=== PATIENT | male | born 1965 | race Caucasian/White ===

== ENCOUNTER 2018-07-27 10:50 | Emergency (ER) | payer MEDICAID, SELFPAY ==
[2018-07-27 10:55] VITALS: BP 139/84; PULSE 99; RESP 16; TEMP 36.7; O2SAT 98
--- NOTE | 2018-07-27 11:06 | DI.RAD_ITS ---
SYMPTOMS/DIAGNOSIS: KNEE PAIN LEFT KNEE: The joint spaces are well maintained. No fracture or joint effusion is seen. There are no significant degenerative changes. IMPRESSION: Negative left knee.
--- NOTE | 2018-07-27 11:08 | W.ED.GENAD ---
Discharge Plan Disposition Patient Disposition: HOME Condition: Stable Discharge Details Chief Complaint: Orthopedic Clinical Impression: Acute pain of left knee Primary Care Provider: Umm Silva ED Provider: Frankie Birmingham Home Meds and New Rx's Prescriptions: New diclofenac sodium 50 mg tablet,delayed release (DR/EC) 50 mg PO TID PRN (Reason: pain) Qty: 15 RF: 0 Discontinued naproxen sodium [Aleve] 220 MG capsule 2 tab PO PRN PRNRF: 0 ibuprofen [Ibuprofen IB] 200 mg Tablet 800 mg PO TID RF: 0 Discharge Instructions Instructions: Knee Pain (ED) Additional Instructions: Due to the injection he received in the emergency department do not take the prescribed pain reliever until 8 PM this evening. Otherwise feel free to return to the emergency department for new or worsening symptoms. Please use the provided knee brace at all times for the next 2 weeks. Use crutches for the next 3 days and then slowly advance activity as tolerated. Call the orthopedic office for arrangement of follow-up appointment. Stand Alone Forms: Work Release Referrals: Adal Georges MD [ [facility] STAFF PHYSICIAN] - 2 weeks (Please call the office for arrangement of follow-up appointment) Discharge Data Discharge Date/Time-TO BE ENTERED AT DEPARTURE: 07/27/18 12:27 Medical Decision Making Patient presenting to the emergency department for chief complaint of left knee pain. Patient states that this is been going on for at least the last 3 years with worsening of symptoms over the last 3 months. Patient states that on a regular basis he is knee gives out or locks and he does occasionally fall when this occurs. Patient states that he had a patella fracture 30+ years ago on the same knee and has had intermittent pain but this is become more persistent with his symptoms of pain and giving out. Physical exam is difficult because with any manipulation or palpation of the knee or surrounding structures patient states excruciating pain and discomfort. Given severe pain and discomfort and inability to fully weight-bear radiological imaging was ordered of the left knee. Patient given IM injection of ketorolac pending results. Review of radiological imaging and my interpretation is no acute findings noted. Patient was reassessed and did state some improvement in discomfort. Patient was placed upon diclofenac 3 times daily and given 5 days worth of prescription. There is significant concern due to joint line tenderness and knee giving out for meniscal type tear. With this patient was instructed to call orthopedic office for arrangement of follow-up appointment and he stated he prefer Dr. Georges as he had been recommended to follow-up with him. After discussion of diagnosis and plan of care patient is no further needs, questions, or concerns and states clear understanding to return to the emergency department for any worsening symptoms. Patient placed up on crutches for the next 3 days and placed in a hinged knee brace which she was encouraged to wear for the next 2 weeks at all times and to slowly advance activity as tolerated. HPI General Mode of arrival: ambulatory. Date/Time Provider Initiated Documentation: 07/27/18 10:57. Limitations to Documentation: no limitations. Information obtained by: patient and family. History of Present Illness 52 year old M presents to the emergency department with the chief complaint of Left knee pain, described as severe, with intensity rated at 9. Quality is described as sharp, and is localized to the left and lower extremity. Patient started experiencing this year(s) (3 years with worsening over the last 3-4-month) and it has been constant. No relieving factors improve symptom(s), Movement worsens symptoms . Patient notes no other symptoms.. Patient did receive the following treatments prior to arrival, NSAID (800mg yesterday) Related Data Home Medications Medication Instructions Recorded Confirmed diclofenac sodium 50 mg PO TID PRN #15 tab 07/27/18 Previous Rx's Medication Instructions Recorded diclofenac sodium 50 mg PO TID PRN #15 tab 07/27/18 Allergies Allergy/AdvReac Type Severity Reaction Status Date / Time No Known Allergies Allergy Unverified 07/27/18 10:59 General Stated Complaint: Orthopedic ELBA: 4 Review of Systems Constitutional Denies chills and Denies fever(s) Cardiovascular Denies chest pain and Denies dyspnea Respiratory Denies dyspnea Musculoskeletal Reports as per HPI, Reports arthralgias, Reports limited range of motion, Denies numbness and Denies stiffness Neurologic Denies numbness [facility] Medical History Kidney stone (Chronic) Left patella fracture (Chronic) Social History Smoking/Tobacco Use Status: Never Exam Const General: cooperative Orientation: alert, awake and oriented x3 Resp Effort & Inspection: normal respiratory effort and able to speak in complete sentences Cardio Rate: regular rate Rhythm: regular rhythm Neuro General: alert, awake, oriented x3 and moves all extremities Extrem Right lower extremity: normal to inspection Left lower extremity: normal capillary refill and knee Details: normal to inspection, tenderness Location: of the patella, of the medial joint line and of the lateral joint line, abnormal ROM Details: pain with active ROM Details: with extension and with flexion; able to extend lower leg actively and knee ligament exam abnormal Details: anterior drawer test Details: pain noted, posterior drawer test Details: pain noted, valgus stress test Details: pain noted, varus stress test Details: pain noted and pain with axial loading; no deformity and no unusual warmth Course Vital Signs Temperature 36.7 C 07/27/18 10:55 Pulse 99 H 07/27/18 10:55 Respiratory Rate 16 07/27/18 10:55 Blood Pressure 139/84 07/27/18 10:55 Pulse Oximetry 98 07/27/18 10:55 Temperature 36.7 C 07/27/18 10:55 Temperature Source Skin 07/27/18 10:55 Pulse 99 H 07/27/18 10:55 Respiratory Rate 16 07/27/18 10:55 Respiratory Effort Non-Labored 07/27/18 10:55 Blood Pressure 139/84 07/27/18 10:55 Pulse Oximetry 98 07/27/18 10:55 Oxygen Delivery Method Room Air 07/27/18 10:55 Oxygen Flow Rate 0 07/27/18 10:55 Pain Level 9 07/27/18 11:04
[2018-07-27] MEDS: Ketorolac 60 MG/2 ML VIAL IM (11:12)
== END 2018-07-27 12:27 | disposition home or self-care (01) ==
LOC: ER 12:25
PROVIDERS: Emergency Provider Nurse Practitioner Family; PCP Nurse Practitioner Gerontology
DX: M25.562 Pain in left knee (principal)
CPT/HCPCS: 29505; 73562; 96372; 99284; E0114; J1885; L1810

== ENCOUNTER 2018-08-22 00:31 | Outpatient (CLI) | payer MEDICAID, SELFPAY ==
--- NOTE | 2018-08-22 10:35 | DI.MRI_ITS ---
SYMPTOM/DIAGNOSIS: LT KNEE PAIN, ? MEDIAL MENISCAL TEAR, M23.92, INTERNAL DERANGEMENT LEFT KNEE MRI: Routine noncontrast examination was performed. The anterior cruciate, posterior cruciate and lateral collateral ligament are intact as are the extensor mechanism, medial and lateral retinaculum and popliteus tendon. There is T 2 hyperintense signal around the medial collateral ligament suggesting a grade I sprain. No shiv tear is identified. The lateral meniscus is intact. There is abnormal signal seen in the region of the body and posterior horn of the medial meniscus suspicious for a tear. The articular cartilage is well maintained. No findings to suggest an occult fracture or avascular necrosis is seen. There are areas of mild marrow edema seen in the tibial plateau, particularly laterally. There is a small amount of fluid in the joint space. No popliteal cyst is seen. The muscles show normal signal and size. No significant muscular fatty atrophy is appreciated. IMPRESSION: 1. Abnormal signal seen in the body and posterior horn of the medial meniscus suspicious for a tear. 2. Mild hyperintense signal surrounding the MCL suspicious for a grade I sprain.
== END 2018-08-22 00:51 ==
PROVIDERS: PCP Family Medicine; Visit Provider Student in an Organized Health Care Education/Training Program
DX: M25.562 Pain in left knee (principal); S83.242A Other tear of medial meniscus, current injury, left knee, initial encounter; S83.412A Sprain of medial collateral ligament of left knee, initial encounter
CPT/HCPCS: 73721

== ENCOUNTER 2019-01-29 08:46 | Inpatient (IN) | payer MEDICAID, SELFPAY ==
[2019-01-29] VITALS (26 sets, daily range): BP systolic 125–197; BP diastolic 74–122; PULSE 69–102; RESP 16–21; TEMP 36.5–37.7; O2SAT 93–97
[2019-01-29] MEDS: Ketorolac 15 MG/ML VIAL IVP (09:35)
[2019-01-29 09:40] LABS: Bilirubin Negative (Negative); Blood Negative (Negative); Clarity Clear; Glucose 500 mg/dL (Negative); Ketones Negative (Negative); Leukocyte Esterase Negative (Negative); Nitrite Negative (Negative); Specific Gravity 1.025 (1.005-1.025)
[2019-01-29 09:47] LABS: Abs Immature Grans 0.05 k/cumm (0.0-0.09); Absolute Eosinophil Count 0.02 k/cumm (0.0-0.7); Absolute Neutrophil Count 12.88 k/cumm (1.2-6.7); Basophils % 0.1; Eosinophils % 0.1; HCT 45.1 % (40.0-50.0); HGB 15.3 g/dL (13.5-17.5); Immature Grans % 0.3; Lymphocytes % 8.4; Mean Corp. HGB Concentration 33.9 g/dL (32.0-36.0); Mean Corpuscular Hemoglobin 30.7 pg (27.0-33.0); Mean Corpuscular Volume 90.6 fL (80-95); Mean Platelet Volume 10.5 fL (8.0-11.0); Monocytes % 11.3; Neutrophils % 79.8; Platelet Count 281 x1000/uL (130-400); RBC 4.98 m/cumm (4.50-6.00); RBC Distribution Width 12.8 % (11.8-14.1); White Blood Cell Count 16.14 k/cumm (4.4-10.8)
[2019-01-29 09:51] LABS: Bacteria Rare HPF (Negative); C & S Indicated? No; Casts Negative LPF (Negative); Crystals Negative HPF (Negative); Epithelial Cells Rare HPF (Negative); Mucus Moderate (Negative); RBC Negative (0-2); WBC 0-2 HPF (0-5)
[2019-01-29 09:51] LABS: Absolute Basophil Count 0.02 k/cumm (0.0-0.2); Absolute Lymphocyte Count 1.36 k/cumm (1.2-3.4); Absolute Monocyte Count 1.82 k/cumm (0.11-0.7)
--- NOTE | 2019-01-29 09:57 | DI.CT_ITS ---
SYMPTOM/DIAGNOSIS: SHARP PAIN FROM ABDOMEN TO BACK, R/O DISSECTION. CHEST, ABDOMEN AND PELVIS CT: 01/29/19 CT examination of the chest, abdomen and pelvis was performed with a bolus infusion of 100 cc Omnipaque 350. There are multiple pulmonary nodules. The largest is a lobulated 10 mm in diameter right middle lobe nodule. An additional right middle lobe nodule is noted measuring about 5 mm in diameter and there is a 7 mm in diameter nodule in the left lower lobe. These are all noncalcified and well circumscribed. No mediastinal or hilar adenopathy. No pulmonary consolidation. No pleural effusion or pneumothorax. No evidence of pulmonary embolic disease No thoracic aortic dissection or aneurysm. Tracheobronchial tree appears intact. Apart from degenerative changes of the lumbar spine, no significant bony abnormality seen in the chest, abdomen or pelvis. Note is made of hepatic steatosis. Gallbladder is dilated and probably thick-walled and there appears to be nunu- cholecystic fat edema. Question mild enhancement of the wall of the duodenum which may represent reactive process. The pancreas appears intact. However, there is a question high density material associated with the distal common bile duct. No intrahepatic biliary ductal dilatation seen. The spleen is unremarkable. There are tiny nonobstructing left renal calculi and small bilateral presumed renal cysts. Adrenals are unremarkable. Abdominal aorta and major branches appear normal. Small fat containing bilateral inguinal hernias noted. No abdominal or pelvic adenopathy. Appendix appears normal. No evidence of diverticulitis or bowel obstruction. CONCLUSION: 1. Multiple noncalcified intrapulmonary nodules, the largest a 10 mm in diameter right middle lobe nodule. Biopsy or close follow up should be considered. 2. Markedly abnormal appearance of the gallbladder with gallbladder wall thickening and pericholecystic fluid, common duct stone not excluded. Correlation with ultrasound recommended. 3. Nonobstructing left renal calculi. 4. No evidence of aortic abnormality or pulmonary embolic disease.
[2019-01-29 10:09] LABS: ALT 32 U/L (12-78); AST 13 U/L (15-37); Albumin 3.6 g/dL (3.4-5.0); Alkaline Phosphatase 110 U/L (46-116); Anion Gap 8.5 mmol/L (3-11); BUN 12 mg/dL (7-18); Bilirubin, Total 1.1 mg/dL (0.2-1.0); CO2 27.5 mmol/L (21.0-32.0); CREATININE 0.97 mg/dL (0.70-1.30); Chloride 99 mmol/L (98-107); Glucose 146 mg/dL (70-100); Lipase 683 U/L (73-393); Potassium 3.7 mmol/L (3.5-5.1); Sodium 135 mmol/L (136-145); Total Protein 7.7 g/dL (6.4-8.2)
[2019-01-29 10:30] LABS: Calcium 10.5 mg/dL (8.5-10.1)
[2019-01-29] MEDS: Omnipaque 350 MG/ML 100 ML BTL IJ (11:12)
--- NOTE | 2019-01-29 11:25 | DI.US_ITS ---
SYMPTOM/DIAGNOSIS: RUQ, EVAL GB AND DUCTS ABDOMINAL ULTRASOUND: 01/29/19 The visualized liver parenchyma is normal in appearance. Note is made of cholelithiasis. The gallbladder is distended and has a thick wall. CT examination showed pericholecystic fat edema. The common duct is poorly seen but appears grossly of normal diameter. Question of high density material seen in the region of the common duct on CT, cannot be confirmed. The pancreas is poorly visualized. CONCLUSION: Cholelithiasis and findings suggesting acute cholecystitis. Common duct obstruction not confirmed. Common duct stone not confirmed. Additional evaluation with MRCP should be considered.
[2019-01-29] MEDS: HYDROmorphone 2 MG/ML VIAL 1 MG IVP (11:33)
--- NOTE | 2019-01-29 12:29 | ED.GENADUL_ITS ---
Discharge Plan Disposition Patient Disposition: [facility] INPATIENT Condition: Stable Discharge Details Chief Complaint: Abd Prob Clinical Impression: Acute cholecystitis, Incidental pulmonary nodule, Pancreatitis Admit Date/Time: 01/29/19 12:26 Admit Provider: Tracie Burch Attending Provider: Tracie Burch Primary Care Provider: Vero Flores ED Provider: Jordan Kwok Discharge Data Discharge Date/Time-TO BE ENTERED AT DEPARTURE: 01/29/19 14:15 Medical Decision Making This is a pleasant 53-year-old male who presents for evaluation of abdominal pain that started at midnight last night. He has a history of MEM type I, kidney stones, he felt that his symptoms were suggestive of his kidney stones. Physical exam demonstrates reproducible abdominal tenderness. Laboratory workup demonstrates a white count of 16, normal electrolytes, normal renal function. Lipase is notably elevated at 683. Urinalysis shows no evidence of urinary tract infection or hematuria. The patient's CT scan was ordered to rule out dissection due to the stabbing pain that radiates directly to his back. CTA of the chest abdomen pelvis was negative for dissection, negative for appendicitis, however it was positive for notably dilated gallbladder, with signs and symptoms concerning for cholecystitis. No bile duct or common bile duct dilatation however there was concern for potential stone. Subsequent ultrasound was ordered and Dr. Park feels that complete visualization of the docs was difficult secondary to bowel gas, and he does not see any significant ductal dilatation though, but he is unable to rule out a stone. Contact contact the surgeon Dr. Mccarthy, she agrees with the current plan recommend Rocephin and Flagyl for antibiotics, he she will admit the patient for further surgical evaluation and management. I have extensively reviewed the treatment plan with the patient. I have addressed all patient concerns at this time. I have also discussed the plan with the admitting physician and they agree with the current assessment and plan and have agreed to assume responsibility for the patient. All parties demonstrate verbal understanding and agreement with our assessment and plan at this time. Also of note the patient CT scan of the chest does demonstrate evidence of notable pulmonary nodules, which do appear to be new. This was discussed with the surgeon and the patient. HPI General Date/Time Provider Initiated Documentation: 01/29/19 08:53 . HPI Narrative: This is a pleasant 53-year-old male with a past medical history of men's type I, previous kidney stones, who takes no medications whatsoever, who presents today for evaluation of periumbilical pain that started at midnight. He describes it as sharp in nature, and goes directly to his back. He has associated nausea but no vomiting. He denies any diarrhea. He states that this feels similar to his previous kidney stones. He denies any dysuria, hematuria or increased urinary frequency. He denies any other complaints at this time. He denies any previous abdominal surgeries. He denies any any IV or illicit drug use. He denies any pertinent family history. Related Data Home Medications Medication Instructions Recorded Confirmed Unknown [No Known Home Meds] 01/29/19 01/29/19 Allergies Allergy/AdvReac Type Severity Reaction Status Date / Time cortisone Allergy Verified 01/29/19 10:30 General Stated Complaint: Abd Prob ELBA: 3 Review of Systems Review of Systems All systems reviewed & are unremarkable except as noted in HPI and below PFSH Medical History Pulmonary nodule seen on imaging study (Acute) Hyperparathyroidism type 1 (Acute) Acute cholecystitis due to biliary calculus (Acute) Acute gallstone pancreatitis (Acute) MEN I (multiple endocrine neoplasia) (Acute) Kidney stones (Chronic) Internal derangement of left knee (Acute) Kidney stone (Chronic) Left patella fracture (Chronic) Social History Smoking/Tobacco Use Status: Never Drug use: Current Sobriety Substance use type: marijuana Do you feel safe at home: Yes Do you feel safe in your relationship?: Yes Exam Narrative Exam Narrative: 1.Const: Well-nourished, Well-developed, appearing stated age 2.Eyes: PERRL, no conjunctival injection, and symmetrical lids. 3.ENT: Atraumatic external nose and ears. Moist MM. Neck: Symmetric, trachea midline, No thyromegaly. 4.CVS: +S1/S2, No murmurs or gallops. Peripheral pulses 2+ and equal in all extremities. Brisk capillary refill in all extremities. 5.RESP: Unlabored respiratory effort. Clear to auscultation bilaterally. No wheezes rales or rhonchi 6.GI: Notable tenderness throughout especially in the periumbilical region. Mild right upper quadrant and right lower quadrant tenderness. No flank or CVA tenderness. Genital exam demonstrates bilaterally descended testicles that are nontender, negative cremasteric reflex. No penile tenderness peer 7.MSK: Normocephalic/Atraumatic, Extremities w/o deformity or ttp No cyanosis or clubbing, Normal movement of all extremities 8.Skin: Warm, Dry. No rashes or lesions. 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 Sensation grossly intact, no focal neurologic deficits. 10.Psych: (AAO) x3. Appropriate mood and affect Course Vital Signs Temperature 37.0 C 01/29/19 08:52 Pulse 98 H 01/29/19 08:52 Respiratory Rate 18 01/29/19 08:52 Pulse Oximetry 97 01/29/19 08:52 Temperature 37.0 C 01/29/19 08:52 Temperature Source Skin 01/29/19 08:52 Pulse 80 01/29/19 10:46 Respiratory Rate 18 01/29/19 08:52 Blood Pressure 159/79 H 01/29/19 10:46 Blood Pressure Mean 100 01/29/19 10:46 Pulse Oximetry 97 01/29/19 10:46 Oxygen Delivery Method Room Air 01/29/19 08:52 Oxygen Flow Rate 0 01/29/19 08:52 Pain Level 10 01/29/19 11:33 Comment pt woke at midnight with 01/29/19 08:52 Lab/Test Results Lab/Test Results: Laboratory Tests Range/Units 01/29/19 01/29/19 01/29/19 09:15 09:30 09:30 WBC (4.4-10.8) k/cumm 16.14 H RBC (4.50-6.00) m/cumm 4.98 Hgb (13.5-17.5) g/dL 15.3 Hct (40.0-50.0) % 45.1 MCV (80-95) fL 90.6 MCH (27.0-33.0) pg 30.7 MCHC (32.0-36.0) g/dL 33.9 RDW (11.8-14.1) % 12.8 Plt Count (130-400) x1000/uL 281 MPV (8.0-11.0) fL 10.5 Immature Gran % 0.3 Neutrophils % 79.8 Lymphocytes % 8.4 Monocytes % 11.3 Eosinophils % 0.1 Basophils % 0.1 Absolute Neutrophils (1.2-6.7) k/cumm 12.88 H Absolute Lymphocytes (1.2-3.4) k/cumm 1.36 Absolute Monocytes (0.11-0.7) k/cumm 1.82 H Absolute Eosinophils (0.0-0.7) k/cumm 0.02 Absolute Basophils (0.0-0.2) k/cumm 0.02 Sodium (136-145) mmol/L 135 L Potassium (3.5-5.1) mmol/L 3.7 Chloride (98-107) mmol/L 99 Carbon Dioxide (21.0-32.0) mmol/L 27.5 Anion Gap (3-11) mmol/L 8.5 BUN (7-18) mg/dL 12 Creatinine (0.70-1.30) mg/dL 0.97 Estimated GFR/1.73 m2 (mL/min/1.73m2) >= 60.00 Glucose (70-100) mg/dL 146 H Calcium (8.5-10.1) mg/dL 10.5 H Total Bilirubin (0.2-1.0) mg/dL 1.1 H AST (15-37) U/L 13 L ALT (12-78) U/L 32 Alkaline Phosphatase (46-116) U/L 110 Total Protein (6.4-8.2) g/dL 7.7 Albumin (3.4-5.0) g/dL 3.6 Lipase (73-393) U/L 683 H Urine Color (Yellow) Dark yellow Urine Clarity Clear Urine pH (5-8) 7.0 Ur Specific [place] (1.005-1.025) 1.025 Urine Protein (Negative) mg/dL 30 H Urine Ketones (Negative) mg/dL Negative Urine Blood (Negative) Negative Urine Nitrite (Negative) Negative Urine Bilirubin (Negative) Negative Urine Urobilinogen (Up TO 0.2) EU/dL 2.0 H Ur Leukocyte Esterase (Negative) Negative Urine RBC (0-2) Negative Urine WBC (0-5) HPF 0-2 Ur Epithelial Cells (Negative) HPF Rare Urine Crystals (Negative) HPF Negative Urine Bacteria (Negative) HPF Rare Urine Casts (Negative) LPF Negative Urine Mucus (Negative) Moderate Ur Culture Indicated? No Urine Glucose (Negative) mg/dL 500 H
--- NOTE | 2019-01-29 13:44 | SCONE_ITS ---
Date of service: 01/29/19 Time of Service: 13:44 Assessment and Plan (1) Acute gallstone pancreatitis: Current visit: Yes Status: Acute reviewed CT w/ rads. Can't see the CBD well- but rads did not think he h as a stone. can't see at all on US. pt cannot tolerate being in an MRI/can't do MRCP. dont think pt requires ERCP. will see how enzymes respond. will admit for IV abx/pain management/supportive care. May needs to allow pancrease to cool down and come back and have interval cholecystectomy. (2) Acute cholecystitis due to biliary calculus: Current visit: Yes Status: Acute as above (3) MEN I (multiple endocrine neoplasia): Current visit: No Status: Acute dg by genetic testing no recent eval (4) Hyperparathyroidism type 1: Current visit: Yes Status: Acute 10 yrs ago had sx at [place] no recent eval (5) Pulmonary nodule seen on imaging study: Current visit: Yes Status: Acute 10mm in size. would be amendable to CT guided bx. should be done as outpt. pt has mult small nodules and prob due to MEN and not met dx. but still needs nodule bx done History of Present Illness Chief Complaint: H & P Narrative: pt has been having periumbilical pain since tuesday. radiates into b ack. no N/V. He is hungry and would liek something to drink. He has a hx of kidney stones and thought he was having a kidney stone and came into ED. no vomiting. + BM. no diarrhea. no blood in stools. He did not know he had kidney stones. He does have a Hx MEN- dg by genetic testing at [place]. Had parathyroids out in x2 sx at [place]. No hx of pancrease or thyroid problems that he is aware of. no recent CT of head. calcium was 12-16 prior to PTH Sx. nl nowadays. Is not aware that he has any pulmonary nodules. no recent CT/CXR. doesn't smoke or drink ETOH. Calcium is 10.5, Pt has never had pancreatitis from from hyperpara.. not on diurectics. no trauma. not on any meds. Consults Consult date: 01/29/19 Requesting physician: Jordan Kwok Review of Systems Review of Systems All systems reviewed & are unremarkable except as noted in HPI and below Constitutional Reports as per HPI, Reports system reviewed and no additional complaints, except as docu, Denies anorexia, Denies chills, Denies difficulty sleeping, Denies fatigue, Denies headache(s), Denies lethargy, Denies malaise, Denies poor appetite, Denies weakness, Denies weight gain and Denies weight loss Eyes Reports as per HPI, Reports system reviewed and no additional complaints, except as docu and Denies change in vision ENT Reports system reviewed and no additional complaints, except as docu, Reports as per HPI, Denies change in voice, Denies dental pain, Denies dysphagia, Denies dizziness, Denies facial pain, Denies headache(s) and Denies odynophagia Cardiovascular Reports as per HPI, Reports system reviewed and no additional complaints, except as docu, Denies chest pain, Denies chest pain with activity, Denies syncope, Denies leg edema and Denies dyspnea Respiratory Reports as per HPI, Reports system reviewed and no additional complaints, except as docu, Denies chest congestion, Denies cough, Denies pain with cough and Denies dyspnea Gastrointestinal Reports as per HPI, Reports system reviewed and no additional complaints, except as docu, Reports abdominal pain, Reports bloating, Denies change in bowel habits, Denies change in stool character, Denies constipation, Reports cramping, Denies dysphagia, Reports early satiety, Denies heartburn, Reports diarrhea (chronic ), Reports nausea, Denies odynophagia and Reports vomiting Comments: s/p RYG Genitourinary Reports system reviewed and no additional complaints, except as docu Comments: hx of kidne stones Musculoskeletal Reports system reviewed and no additional complaints, except as docu, Reports as per HPI, Denies abnormal gait, Denies arthralgias and Denies muscle weakness Integumentary/Breasts Reports system reviewed and no additional complaints, except as docu, Reports as per HPI, Denies changing lesions, Denies new lesions and Denies jaundice Neurologic Reports system reviewed and no additional complaints, except as docu, Reports as per HPI, Denies abnormal speech, Denies abnormal gait, Denies dizziness, Denies syncope, Denies headache(s), Denies memory loss and Denies weakness Psychiatric Reports system reviewed and no additional complaints, except as docu, Reports as per HPI, Denies change in appetite and Denies memory loss Endocrine Denies fatigue, Denies polydipsia and Denies polyuria Comments: hx of MEN- hyerparathyroid Hematologic/Lymphatic Reports system reviewed and no additional complaints, except as docu, Denies easy bleeding and Denies easy bruising Allergic/Immunologic Denies system reviewed and no additional complaints, except as docu, Reports as per HPI and Denies urticaria PFSH Medical History Pulmonary nodule seen on imaging study (Acute) Hyperparathyroidism type 1 (Acute) Acute cholecystitis due to biliary calculus (Acute) Acute gallstone pancreatitis (Acute) MEN I (multiple endocrine neoplasia) (Acute) Kidney stones (Chronic) Internal derangement of left knee (Acute) Kidney stone (Chronic) Left patella fracture (Chronic) Social History Smoking/Tobacco Use Status: Never Drug use: Current Sobriety Substance use type: marijuana Do you feel safe at home: Yes Do you feel safe in your relationship?: Yes Exam Const General: cooperative, healthy appearing, comfortable, no acute distress, well developed and well groomed Nutritional Appearance: average body habitus and well nourished Orientation: alert, awake and oriented x3 HENMT Head: normal to inspection, normocephalic and atraumatic Ears: hearing grossly normal bilaterally and external ears normal General nose exam: external nose normal Face and sinus: normal facial exam and sinuses nontender Mouth: oral mucosae normal, lip normal, tongue normal and moist mucous membranes Teeth and gingiva: dentition normal Eyes General: appearance normal, both eyes and all related structures Conjunctivae: conjunctivae normal Sclera: sclerae normal Pupils: PERRL Neck Neck: normal visual inspection and full ROM Chest Chest: normal inspection of the chest Resp Effort & Inspection: normal respiratory effort, able to speak in complete sentences, no cough, no nasal flaring, not tachypneic and no use of accessory muscles Auscultation: clear to auscultation bilaterally, no rales, no rhonchi and no wheezes Cardio Jugular venous pressure: no JVD Rate: regular rate Rhythm: regular rhythm GI Inspection: normal to inspection, no edema and non-distended Palpation: soft, no masses, nontender and No ascites Auscultation: normal bowel sounds Other: pain in epigastric area. rediates to left flank. also RUQ pain. +BS no distention or peritonitis. Skin General skin exam: no rashes or lesions noted Trauma: no lacerations or abrasions Neuro General: alert, oriented x3, oriented, gait normal, moves all extremities, no focal motor deficits and CN's II-XI intact bilaterally Cognition: normal cognition Speech: speech normal Gait: normal gait Motor: muscle tone normal throughout Extrem General: normal to inspection, full ROM and no clubbing, cyanosis or edema Psych Appearance: grossly normal and well kempt Mental Status: mental status grossly normal Speech and Movement: speech and movement normal Affect: normal affect Results Last Vital Signs Temp 37.0 C 01/29/19 08:52 Pulse 80 01/29/19 10:46 Resp 18 01/29/19 08:52 BP 159/79 H 01/29/19 10:46 Pulse Ox 97 01/29/19 10:46 Labs : 01/29/19 09:30 01/29/19 09:30 Laboratory Results - last 24 hr 01/29/19 01/29/19 01/29/19 09:15 09:30 09:30 WBC 16.14 H RBC 4.98 Hgb 15.3 Hct 45.1 MCV 90.6 MCH 30.7 MCHC 33.9 RDW 12.8 Plt Count 281 MPV 10.5 Immature Gran % 0.3 Neutrophils % 79.8 Lymphocytes % 8.4 Monocytes % 11.3 Eosinophils % 0.1 Basophils % 0.1 Absolute Neutrophils 12.88 H Absolute Lymphocytes 1.36 Absolute Monocytes 1.82 H Absolute Eosinophils 0.02 Absolute Basophils 0.02 Sodium 135 L Potassium 3.7 Chloride 99 Carbon Dioxide 27.5 Anion Gap 8.5 BUN 12 Creatinine 0.97 Estimated GFR/1.73 m2 >= 60.00 Glucose 146 H Calcium 10.5 H Total Bilirubin 1.1 H AST 13 L ALT 32 Alkaline Phosphatase 110 Total Protein 7.7 Albumin 3.6 Lipase 683 H Urine Color Dark yellow Urine Clarity Clear Urine pH 7.0 Ur Specific [place] 1.025 Urine Protein 30 H Urine Ketones Negative Urine Blood Negative Urine Nitrite Negative Urine Bilirubin Negative Urine Urobilinogen 2.0 H Ur Leukocyte Esterase Negative Urine RBC Negative Urine WBC 0-2 Ur Epithelial Cells Rare Urine Crystals Negative Urine Bacteria Rare Urine Casts Negative Urine Mucus Moderate Ur Culture Indicated? No Urine Glucose 500 H
[2019-01-29] MEDS: cefTRIAXone 2 GM/50 ML BAG IVPB (14:08)
[2019-01-29] MEDS: Lactated Ringers 1,000 ML 150 ML IV ×2 (14:28→22:05)
[2019-01-29] MEDS: Normal Saline Flush 10 ML SYR IVP ×2 (15:01→20:29)
[2019-01-29] MEDS: Enoxaparin 40 MG/0.4 ML SYR SC (16:26)
[2019-01-29] MEDS: metroNIDAZOLE 500 MG/100 ML BAG 100 MG IVPB ×2 (17:07→23:45)
[2019-01-30] VITALS (33 sets, daily range): BP systolic 137–176; BP diastolic 72–94; PULSE 80–108; RESP 12–26; TEMP 36.6–38.2; O2SAT 91–97
--- NOTE | 2019-01-30 00:32 | NUR.NOTE ---
Nursing Note: Pt was medicated for back pain rated 9. and with good effect, voided a total of 250 cc up to this time. Family member at bedside. Call lights at reach.
[2019-01-30] MEDS: Lactated Ringers 1,000 ML 150 ML IV (05:28)
[2019-01-30] MEDS: metroNIDAZOLE 500 MG/100 ML BAG 100 MG IVPB ×3 (06:04→23:43)
--- NOTE | 2019-01-30 06:57 | W.PM.PROGNOT ---
Documented by User: JOSELIN Antunez 01/30/19 07:04 Date of Service Date of service: 01/30/19 Time of Service: 06:58 Assessment and Plan (1) Acute gallstone pancreatitis: Current visit: Yes Status: Acute DIET- Sips of water PAIN- Dilaudid and Toradol ordered. ATB- Ceftriaxone and Metronidazole AM Labs pending No BM overnight. Urinating without difficulty. Encouraged activity out of bed as tolerated. (2) Acute cholecystitis due to biliary calculus: Current visit: Yes Status: Acute (3) MEN I (multiple endocrine neoplasia): Current visit: No Status: Acute (4) Hyperparathyroidism type 1: Current visit: Yes Status: Acute (5) Pulmonary nodule seen on imaging study: Current visit: Yes Status: Acute Subjective Interval history since last seen: Mr. Peter reports that his ABD pain continues, despite pain medications. He reports his pain is nunu-umbilical and radiates to his back. Denies nausea or vomiting. (+) Passing flatus. Tolerating water. Exam Const General: cooperative and acute distress mild Orientation: alert and oriented x3 Resp Effort & Inspection: normal respiratory effort, normal respiratory pattern and no audible wheezes GI Inspection: normal to inspection and non-distended Palpation: no guarding, hernia ventral and tender in the RUQ and periumbilically Auscultation: normal bowel sounds Objective Objective Clinical Data: Abnormal lab results 01/29/19 01/29/19 01/29/19 Range/Units 09:15 09:30 09:30 WBC 16.14 H (4.4-10.8) k/cumm Absolute Neutrophils 12.88 H (1.2-6.7) k/cumm Absolute Monocytes 1.82 H (0.11-0.7) k/cumm Sodium 135 L (136-145) mmol/L Glucose 146 H (70-100) mg/dL Calcium 10.5 H (8.5-10.1) mg/dL Total Bilirubin 1.1 H (0.2-1.0) mg/dL AST 13 L (15-37) U/L Lipase 683 H (73-393) U/L Urine Protein 30 H (Negative) mg/dL Urine Urobilinogen 2.0 H (Up TO 0.2) EU/dL Urine Glucose 500 H (Negative) mg/dL Vital Signs Temperature 37.7 C H 01/29/19 21:08 Temperature Source Tympanic 01/29/19 21:08 Pulse 92 H 01/29/19 21:08 Pulse Rhythm Regular 01/29/19 23:20 Respiratory Rate 20 01/29/19 21:08 Respiratory Effort Non-Labored 01/29/19 23:20 Respiratory Depth Normal 01/29/19 23:20 Blood Pressure 165/83 H 01/29/19 21:08 Blood Pressure Mean 100 01/29/19 10:46 Pulse Oximetry 96 01/29/19 21:08 Oxygen Delivery Method Room Air 01/29/19 21:08 Oxygen Flow Rate 0 01/29/19 21:08 Pain Level 9 01/29/19 20:29 Comment pt woke at midnight with 01/29/19 08:52 Intake & Output 01/29/19 01/29/19 01/30/19 06:59 18:59 06:59 Intake Total 150 / 2250 2100 / 2250 Output Total 250 / 250 Balance 150 / 2000 1850 / 2000 Weight 108.7 kg Intake: IV 150 / 2250 2100 / 2250 Output: Urine 250 / 250 Other: Urine Color Light Yesenia Urine Appearance Clear Voiding Methods Urinal Laboratory Results WBC 16.14 k/cumm (4.4-10.8) H 01/29/19 09:30 RBC 4.98 m/cumm (4.50-6.00) 01/29/19 09:30 Hgb 15.3 g/dL (13.5-17.5) 01/29/19 09:30 Hct 45.1 % (40.0-50.0) 01/29/19 09:30 MCV 90.6 fL (80-95) 01/29/19 09:30 MCH 30.7 pg (27.0-33.0) 01/29/19 09:30 MCHC 33.9 g/dL (32.0-36.0) 01/29/19 09:30 RDW 12.8 % (11.8-14.1) 01/29/19 09:30 Plt Count 281 x1000/uL (130-400) 01/29/19 09:30 MPV 10.5 fL (8.0-11.0) 01/29/19 09:30 Immature Gran % 0.3 01/29/19 09:30 Neutrophils % 79.8 01/29/19 09:30 Lymphocytes % 8.4 01/29/19 09:30 Monocytes % 11.3 01/29/19 09:30 Eosinophils % 0.1 01/29/19 09:30 Basophils % 0.1 01/29/19 09:30 Absolute Neutrophils 12.88 k/cumm (1.2-6.7) H 01/29/19 09:30 Absolute Lymphocytes 1.36 k/cumm (1.2-3.4) 01/29/19 09:30 Absolute Monocytes 1.82 k/cumm (0.11-0.7) H 01/29/19 09:30 Absolute Eosinophils 0.02 k/cumm (0.0-0.7) 01/29/19 09:30 Absolute Basophils 0.02 k/cumm (0.0-0.2) 01/29/19 09:30 Sodium 135 mmol/L (136-145) L 01/29/19 09:30 Potassium 3.7 mmol/L (3.5-5.1) 01/29/19 09:30 Chloride 99 mmol/L (98-107) 01/29/19 09:30 Carbon Dioxide 27.5 mmol/L (21.0-32.0) 01/29/19 09:30 Anion Gap 8.5 mmol/L (3-11) 01/29/19 09:30 BUN 12 mg/dL (7-18) 01/29/19 09:30 Creatinine 0.97 mg/dL (0.70-1.30) 01/29/19 09:30 Estimated GFR/1.73 m2 >= 60.00 (mL/min/1.73m2) 01/29/19 09:30 Glucose 146 mg/dL (70-100) H 01/29/19 09:30 Calcium 10.5 mg/dL (8.5-10.1) H 01/29/19 09:30 Total Bilirubin 1.1 mg/dL (0.2-1.0) H 01/29/19 09:30 AST 13 U/L (15-37) L 01/29/19 09:30 ALT 32 U/L (12-78) 01/29/19 09:30 Alkaline Phosphatase 110 U/L (46-116) 01/29/19 09:30 Total Protein 7.7 g/dL (6.4-8.2) 01/29/19 09:30 Albumin 3.6 g/dL (3.4-5.0) 01/29/19 09:30 Lipase 683 U/L (73-393) H 01/29/19 09:30 Urine Color Dark yellow (Yellow) 01/29/19 09:15 Urine Clarity Clear 01/29/19 09:15 Urine pH 7.0 (5-8) 01/29/19 09:15 Ur Specific [place] 1.025 (1.005-1.025) 01/29/19 09:15 Urine Protein 30 mg/dL (Negative) H 01/29/19 09:15 Urine Ketones Negative mg/dL (Negative) 01/29/19 09:15 Urine Blood Negative (Negative) 01/29/19 09:15 Urine Nitrite Negative (Negative) 01/29/19 09:15 Urine Bilirubin Negative (Negative) 01/29/19 09:15 Urine Urobilinogen 2.0 EU/dL (Up TO 0.2) H 01/29/19 09:15 Ur Leukocyte Esterase Negative (Negative) 01/29/19 09:15 Urine RBC Negative (0-2) 01/29/19 09:15 Urine WBC 0-2 HPF (0-5) 01/29/19 09:15 Ur Epithelial Cells Rare HPF (Negative) 01/29/19 09:15 Urine Crystals Negative HPF (Negative) 01/29/19 09:15 Urine Bacteria Rare HPF (Negative) 01/29/19 09:15 Urine Casts Negative LPF (Negative) 01/29/19 09:15 Urine Mucus Moderate (Negative) 01/29/19 09:15 Ur Culture Indicated? No 01/29/19 09:15 Urine Glucose 500 mg/dL (Negative) H 01/29/19 09:15 Documented by User: Trcaie Burch DO 01/30/19 09:42 Assessment and Plan (1) Acute cholecystitis due to biliary calculus: Current visit: Yes Status: Acute pt seen adn examined. agree w/ above. Panc labs and T bill are nl today. still having high pain in epigastric region and nausea despite sbx therapy US and CT reviewed. d/w pt surgery. pt agrees. high prob of going open Informed consent is obtained for the procedural (explained in simple layman's terms that the pt. and/or family could understand) explaining risks vs benefits and alternatives to the procedure and consequences if we do not do the procedure. Risks include but are not limited to: bleeding, infections, pneumonia, blood clots/DVT/PE, anesthesia (aspiration, damage to teeth/airway/AR/CVA//prolonged mechanical ventilation/PTX/IV infections), damage to bowel, bladder, blood vessels, ureters, bile ducts. Damage to solid organs requiring removal. Infertility. Leakage from anastomosis requiring colostomy/ Wound infections requiring further surgery. Loss of function of limb/ext. (motor or sensory). Scarring and disfigurement. Subsequent bowel obstructions from scar tissue. Possible open procedure if minimally invasive procedure is being attempted. pt will be in hosp at least another 24 hrs for IV abx high poss of going open secondary severity of Dx. d/w anethesia Ca nl today
[2019-01-30 08:23] LABS: Abs Immature Grans 0.02 k/cumm (0.0-0.09); Absolute Lymphocyte Count 1.25 k/cumm (1.2-3.4); Basophils % 0.2; HCT 43.5 % (40.0-50.0); HGB 14.3 g/dL (13.5-17.5); Immature Grans % 0.2; Lymphocytes % 9.9; Mean Corp. HGB Concentration 32.9 g/dL (32.0-36.0); Mean Corpuscular Volume 91.4 fL (80-95); Mean Platelet Volume 10.9 fL (8.0-11.0); Monocytes % 13.1; Neutrophils % 75.6; Platelet Count 258 x1000/uL (130-400); RBC 4.76 m/cumm (4.50-6.00); RBC Distribution Width 12.9 % (11.8-14.1); White Blood Cell Count 12.63 k/cumm (4.4-10.8)
[2019-01-30 08:32] LABS: Absolute Basophil Count 0.03 k/cumm (0.0-0.2); Absolute Eosinophil Count 0.13 k/cumm (0.0-0.7); Absolute Monocyte Count 1.65 k/cumm (0.11-0.7); Absolute Neutrophil Count 9.55 k/cumm (1.2-6.7)
[2019-01-30 08:42] LABS: ALT 44 U/L (12-78); AST 25 U/L (15-37); Albumin 2.9 g/dL (3.4-5.0); Alkaline Phosphatase 105 U/L (46-116); Amylase 34 U/L (25-115); Anion Gap 8.7 mmol/L (3-11); BUN 14 mg/dL (7-18); CO2 27.3 mmol/L (21.0-32.0); CREATININE 0.87 mg/dL (0.70-1.30); Chloride 99 mmol/L (98-107); Glucose 115 mg/dL (70-100); Lipase 150 U/L (73-393); Potassium 3.5 mmol/L (3.5-5.1); Sodium 135 mmol/L (136-145); TSH (W/Ref FT4) 0.92 uIU/mL (0.358-3.74); Total Protein 6.7 g/dL (6.4-8.2)
[2019-01-30] MEDS: HYDROmorphone 2 MG/ML VIAL 1 MG IVP ×3 (08:45→18:58)
[2019-01-30] MEDS: Normal Saline Flush 10 ML SYR IVP ×4 (08:46→23:43)
[2019-01-30 08:48] LABS: Calcium 9.5 mg/dL (8.5-10.1)
[2019-01-30 08:54] LABS: Cholesterol 153 mg/dL (50-200); HDL Cholesterol 41 mg/dL (40-60); LDL CHOLESTEROL 97 mg/dL (<100); Triglyceride 74 mg/dL (30-150)
[2019-01-30 09:07] LABS: Diff Comment Diff Reviewed; RBC Morphology Normal
[2019-01-30 09:38] LABS: Prolactin 8.8 ng/ml (2.1-17.7)
[2019-01-30] MEDS: Albuterol 2.5 MG/3 ML INH SOLN VIAL (10:15)
[2019-01-30] MEDS: Lactated Ringers 1,000 ML 30 ML IV ×3 (10:16→15:56)
[2019-01-30] MEDS: Bupivacaine 0.25% Pres-Free 30 ML VIAL (10:53)
[2019-01-30] MEDS: cefTRIAXone 2 GM/50 ML BAG IVPB (11:09)
[2019-01-30 11:33] LABS: Parathyroid Hormone,Intact 124 pg/ml (19-88)
[2019-01-30] MEDS: Cellulose,Oxidized 4X8 1 PACKET MC ×2 (12:46→13:06)
--- NOTE | 2019-01-30 12:57 | GB_PTH ---
PATIENT: SHAD ARROYO LOC: ICU U#:[id number] AGE/SX: 53/M ROOM: ICU.220 RE01/29/[address]: Tracie Burch : 1965 BED: A DIS: 02/01/2019 SPEC #: [id number] RECD: 01/30/19 17:20 STATUS: LATANYA REQ #: [id number] MADHU: 01/30/19 12:[address]: Tracie Burch DEPT: Surgical Specimen RECD BY: Kathy Pagan ENTERED: 01/30/19 17:21 SP TYPE: GB OTHR DR: Vero Flores MD Tissues: 1 - GALLBLADDER Procedures: GROSS AND MICRO LEVEL 3 Comments: [id number]
--- NOTE | 2019-01-30 14:04 | ROE_ITS ---
Date of service: 01/30/19 Time of Service: 14:02 Operative Note DATE OF PROCEDURE: 01/30/19 PRE-OP DIAGNOSIS: acute douglas /gallstone pcan w/ stones POST-OP DIAGNOSIS: other (gangrenous douglas ) PROCEDURE: atempted lap douglas/ open douglas SURGEON: Tracie Burch ASSISTING SURGEON: Valarie Donato BLOW MOLDING MACHINE OPERATOR: Matt Esquivel ESTIMATED BLOOD LOSS: 150 TOURNIQUET TIME: 0 COMPLICATIONS: None Patient was transported to: PACU Patient's condition: stable Implants: KANCHAN drain Indications: acute douglas that did not respond to abx Findings: gangrenous douglas nad stones Procedure Description: dictated
--- NOTE | 2019-01-30 14:32 | PHARADMIT ---
Addendum entered by Conner Canela III 02/01/19 10:36: Pharmacy Note Subjective Patient going to [facility] for stent placement, with possible return in afternoon. Objective VS-OK pain: 04/25 K+3.5 Mag-2.0 WBC-14.11 Assessment No med changes. Pre-medicated with Hydromorphone & Zofran for transfer Plan Had bile leak post-op yesterday recurring transfer to [facility]. Addendum entered by Dafne Alvarado 01/31/19 10:56: Pharmacy Note Subjective lap to open cholecystectomy, ? nodules in lungs, chest pain(for months) Objective pain -06/26, bp 147/80, troponin neg Assessment hydromorphone ACOUSTICAL ENGINEER started, EKG and ECHO ordered, Plan follow for improved pain control and switch to PO pain meds Original Note: Admission Pharmacy Clinical Review acute chol. gallstone panc Code Status Full Code Current Weight 108.7 kg Renally Cleared and Narrow Therapeutic Index Meds Crcl ~89.00 mL/min current meds okay QTc Value / Action Taken QTc 406 BP Control, Fever BP 166/88 afebrile Electrolytes reviewed Na 135 DVT Prophylaxis enoxaparin Opiate Usage / Scheduled Bowel Regimen Ordered prn/no Plt/SCr for Heparin / Enoxaparin plt 258 SCr 0.87 INR for Warfarin n/a H/H stable, WBC/Bands h/h 14.3/43.5 wbc 12.63 Antibiotic appropriateness ceftriaxone and metronidazole Cultures and Sensitivities gall bladder bile cultures pending Surgical ABX d/c within 24 hr surgery today, watch for d/c of abx DM control / Insulin Dosing BG 115 none Heart Failure (Check EF%) (SAEED's, B-Block, Diuretics) none IV to PO Switch n/a Home Meds Reviewed no known home meds Home Meds Not Ordered no known home meds Comments
--- NOTE | 2019-01-30 15:34 | PDOC.CMIN ---
- If Service Date Differs Date of service: 01/30/19 Time of Service: 15:34 Care Management Initial Assess REASON FOR HOSPITALIZATION:: Acute Cholecystitis due to biliary calculus and acute gallstone pancreatitis. PAST MEDICAL HISTORY/PAST SURGICAL HISTORY:: Medical History: Pulmonary nodule seen on imaging study, Hyperparathyroidism type 1. Acute cholecystitis due to biliary calculus (Acute), Acute gallstone pancreatitis (Acute), MEN I (multiple endocrine neoplasia), Kidney stones. Internal derangement of left knee, Left patella fracture PREVIOUS FUNCTIONAL STATUS/SOCIAL/FAMILY SUPPORTS:: Tone is a 53 year old gentleman admitted with gallstone pancreatitis and cholecystitis. He is from his and lives in a single family house with a son and daughter. He has a third child living outside of the home. 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 CURRENT FUNCTIONAL STATUS:: Martin was in the operating room at the time of CM morning visit and information was provided by daughter Kimberly. Post-operatively, Martin was transferred to ICU. He was very sleepy and unable to converse during afternoon CM visit. ADVANCE DIRECTIVES:: None on file. Has patient been provided with information about the portal?: No Did the patient sign up for the portal?: No CODE STATUS:: Full Code INSURANCE COVERAGE / FINANCIAL ISSUES:: Medicaid/[place] CURRENT HOME/COMMUNITY SERVICES/EQUIPMENT:: none PRIMARY CARE PHYSICIAN:: Vero Flores POTENTIAL DISCHARGE NEEDS:: Follow up with surgeon and PCP PATIENT/FAMILY EDUCATION NEEDS:: Discharge Plan, limitations, follow up plan of care and Ask Me Three. According to Martin's daughter Kimberly, he is very non-compliant with his healthcare. He fails to keep doctor's appointments or to follow his plan of care. Supportive education regarding his underlying medical conditions and care needs may be needed. ANTICIPATED BARRIERS TO DISCHARGE:: None identified TRANSPORTATION:: Via private automobile with family at time of discharge. PLAN:: Tone had an open cholecystectomy performed by Dr. Burch this morning. It is anticipated that he will return home in a couple of days. He may need Home Health with half-way for dressing changes. will continue to provide support to patient, family, care team and ongoing discharge planning.
--- NOTE | 2019-01-30 15:41 | W.PM.PROGNOT ---
Date of Service Date of service: 01/30/19 Time of Service: 15:41 Assessment and Plan (1) Gangrenous cholecystitis: Current visit: Yes Status: Acute Subjective Patient reports: afebrile and other (no chest pain ); denies shortness of breath Interval history since last seen: pt seen in ICU postOP. c/o mild incisional pain. d/w pt findings at surg. no chest pain or SOB currently. good yellow urine. There is bile in the drain. If does not resolve spon in next 48 hrs- will need to go for ERCP and stent. abx/PPI/ lovnox in am. hold torodol at this time. pt was oozy during surgery seoncdary to infection/inflammation. cardiac monitoring in ICU for poss hx angina. will check A1c as well. Will have hosp follow for cardiac issues. pt is nto on any home medications. family reports pt c/o chest pain- I'm not convinced this was cardiac and prob was GB. Pt has not seen recently and has had no cares for MEN. d/w pt importance of palm toilet. Exam Narrative Exam Narrative: awake and alert. still drowsy from anethesia Const General: comfortable and no acute distress Chest Chest: normal inspection of the chest Resp Effort & Inspection: normal respiratory effort and able to speak in complete sentences Auscultation: clear to auscultation bilaterally Cardio Rate: regular rate Rhythm: regular rhythm Other: nsr on tele. GI Other: incision c/d/i. Preva system running. KANCHAN- 30cc and bile tinged Skin Other: intact Objective Objective Clinical Data: Abnormal lab results 01/29/19 01/30/19 01/30/19 Range/Units 09:30 07:55 07:55 WBC 12.63 H (4.4-10.8) k/cumm Absolute Neutrophils 9.55 H (1.2-6.7) k/cumm Absolute Monocytes 1.65 H (0.11-0.7) k/cumm Sodium 135 L (136-145) mmol/L Glucose 115 H (70-100) mg/dL Albumin 2.9 L (3.4-5.0) g/dL PTH Intact 124 H (19-88) pg/mL Vital Signs Temperature 36.6 C 01/30/19 15:03 Temperature Source Tympanic 01/30/19 08:23 Pulse 92 H 01/30/19 15:03 Pulse Rhythm Regular 01/30/19 09:00 Respiratory Rate 23 01/30/19 15:03 Respiratory Effort Non-Labored 01/30/19 09:00 Respiratory Depth Normal 01/30/19 09:00 Respiratory Pattern Normal 01/30/19 09:00 Blood Pressure 165/76 H 01/30/19 15:03 Blood Pressure Mean 100 01/29/19 10:46 Pulse Oximetry 95 01/30/19 15:03 Respiratory End-tidal CO2 39 01/30/19 15:03 Oxygen Delivery Method Nasal Cannula 01/30/19 15:03 Oxygen Flow Rate 3 01/30/19 15:03 Pain Level 5 01/30/19 15:03 Comment pt woke at midnight with 01/29/19 08:52 Intake & Output 01/29/19 01/30/19 01/30/19 23:59 11:59 23:59 Intake Total 1150 / 1150 1150 / 2500 1350 / 2500 Output Total 250 / 250 350 / 935 585 / 935 Balance 900 / 900 800 / 1565 765 / 1565 Weight 108.7 kg Intake: IV 1150 / 1150 1150 / 2500 1350 / 2500 Output: Drainage 60 / 60 Right Abdomen 60 / 60 Urine 250 / 250 350 / 725 375 / 725 Estimated Blood Loss 150 / 150 Other: Urine Color Light Yesenia Yellow Light Yesenia Urine Appearance Clear Clear Clear Urine Odor Strong Emesis Description None Voiding Methods Urinal Laboratory Results WBC 12.63 k/cumm (4.4-10.8) H 01/30/19 07:55 RBC 4.76 m/cumm (4.50-6.00) 01/30/19 07:55 Hgb 14.3 g/dL (13.5-17.5) 01/30/19 07:55 Hct 43.5 % (40.0-50.0) 01/30/19 07:55 MCV 91.4 fL (80-95) 01/30/19 07:55 MCH 30.0 pg (27.0-33.0) 01/30/19 07:55 MCHC 32.9 g/dL (32.0-36.0) 01/30/19 07:55 RDW 12.9 % (11.8-14.1) 01/30/19 07:55 Plt Count 258 x1000/uL (130-400) 01/30/19 07:55 MPV 10.9 fL (8.0-11.0) 01/30/19 07:55 Immature Gran % 0.2 01/30/19 07:55 Neutrophils % 75.6 01/30/19 07:55 Lymphocytes % 9.9 01/30/19 07:55 Monocytes % 13.1 01/30/19 07:55 Eosinophils % 1.0 01/30/19 07:55 Basophils % 0.2 01/30/19 07:55 Absolute Neutrophils 9.55 k/cumm (1.2-6.7) H 01/30/19 07:55 Absolute Lymphocytes 1.25 k/cumm (1.2-3.4) 01/30/19 07:55 Absolute Monocytes 1.65 k/cumm (0.11-0.7) H 01/30/19 07:55 Absolute Eosinophils 0.13 k/cumm (0.0-0.7) 01/30/19 07:55 Absolute Basophils 0.03 k/cumm (0.0-0.2) 01/30/19 07:55 Differential Comment Diff reviewed 01/30/19 07:55 RBC Morphology Normal 01/30/19 07:55 Sodium 135 mmol/L (136-145) L 01/30/19 07:55 Potassium 3.5 mmol/L (3.5-5.1) 01/30/19 07:55 Chloride 99 mmol/L (98-107) 01/30/19 07:55 Carbon Dioxide 27.3 mmol/L (21.0-32.0) 01/30/19 07:55 Anion Gap 8.7 mmol/L (3-11) 01/30/19 07:55 BUN 14 mg/dL (7-18) 01/30/19 07:55 Creatinine 0.87 mg/dL (0.70-1.30) 01/30/19 07:55 Estimated GFR/1.73 m2 >= 60.00 (mL/min/1.73m2) 01/30/19 07:55 Glucose 115 mg/dL (70-100) H 01/30/19 07:55 Calcium 9.5 mg/dL (8.5-10.1) 01/30/19 07:55 Total Bilirubin 1.0 mg/dL (0.2-1.0) 01/30/19 07:55 AST 25 U/L (15-37) 01/30/19 07:55 ALT 44 U/L (12-78) 01/30/19 07:55 Alkaline Phosphatase 105 U/L (46-116) 01/30/19 07:55 Total Protein 6.7 g/dL (6.4-8.2) 01/30/19 07:55 Albumin 2.9 g/dL (3.4-5.0) L 01/30/19 07:55 Triglycerides 74 mg/dL (30-150) 01/30/19 07:55 Total Cholesterol 153 mg/dL (50-200) 01/30/19 07:55 LDL Cholesterol Direct 97 mg/dL (<100) 01/30/19 07:55 HDL Cholesterol 41 mg/dL (40-60) 01/30/19 07:55 Amylase 34 U/L (25-115) 01/30/19 07:55 Lipase 150 U/L (73-393) 01/30/19 07:55 TSH 0.92 uIU/mL (0.358-3.74) 01/30/19 07:55 Prolactin 8.8 ng/mL (2.1-17.7) 01/29/19 09:30 PTH Intact 124 pg/mL (19-88) H 01/29/19 09:30 Urine Color Dark yellow (Yellow) 01/29/19 09:15 Urine Clarity Clear 01/29/19 09:15 Urine pH 7.0 (5-8) 01/29/19 09:15 Ur Specific [place] 1.025 (1.005-1.025) 01/29/19 09:15 Urine Protein 30 mg/dL (Negative) H 01/29/19 09:15 Urine Ketones Negative mg/dL (Negative) 01/29/19 09:15 Urine Blood Negative (Negative) 01/29/19 09:15 Urine Nitrite Negative (Negative) 01/29/19 09:15 Urine Bilirubin Negative (Negative) 01/29/19 09:15 Urine Urobilinogen 2.0 EU/dL (Up TO 0.2) H 01/29/19 09:15 Ur Leukocyte Esterase Negative (Negative) 01/29/19 09:15 Urine RBC Negative (0-2) 01/29/19 09:15 Urine WBC 0-2 HPF (0-5) 01/29/19 09:15 Ur Epithelial Cells Rare HPF (Negative) 01/29/19 09:15 Urine Crystals Negative HPF (Negative) 01/29/19 09:15 Urine Bacteria Rare HPF (Negative) 01/29/19 09:15 Urine Casts Negative LPF (Negative) 01/29/19 09:15 Urine Mucus Moderate (Negative) 01/29/19 09:15 Ur Culture Indicated? No 01/29/19 09:15 Urine Glucose 500 mg/dL (Negative) H 01/29/19 09:15
--- NOTE | 2019-01-30 16:05 | INITIAL_ITS ---
- If Service Date Differs Date of service: 01/30/19 Time of Service: 15:34 Care Management Initial Assess REASON FOR HOSPITALIZATION:: Acute Cholecystitis due to biliary calculus and acute gallstone pancreatitis. PAST MEDICAL HISTORY/PAST SURGICAL HISTORY:: Medical History: Pulmonary nodule seen on imaging study, Hyperparathyroidism type 1. Acute cholecystitis due to biliary calculus (Acute), Acute gallstone pancreatitis (Acute), MEN I (multiple endocrine neoplasia), Kidney stones. Internal derangement of left knee, Left patella fracture PREVIOUS FUNCTIONAL STATUS/SOCIAL/FAMILY SUPPORTS:: Tone is a 53 year old gentleman admitted with gallstone pancreatitis and cholecystitis. He is from his and lives in a single family house with a son and daughter. He has a third child living outside of the home. 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 CURRENT FUNCTIONAL STATUS:: Martin was in the operating room at the time of CM morning visit and information was provided by daughter Kimberly. Post- operatively, Martin was transferred to ICU. He was very sleepy and unable to converse during afternoon CM visit. ADVANCE DIRECTIVES:: None on file. Has patient been provided with information about the portal?: No Did the patient sign up for the portal?: No CODE STATUS:: Full Code INSURANCE COVERAGE / FINANCIAL ISSUES:: Medicaid/[place] CURRENT HOME/COMMUNITY SERVICES/EQUIPMENT:: none PRIMARY CARE PHYSICIAN:: Vero Flores POTENTIAL DISCHARGE NEEDS:: Follow up with surgeon and PCP PATIENT/FAMILY EDUCATION NEEDS:: Discharge Plan, limitations, follow up plan of care and Ask Me Three. According to Martin's daughter Kimberly, he is very non- compliant with his healthcare. He fails to keep doctor's appointments or to follow his plan of care. Supportive education regarding his underlying medical conditions and care needs may be needed. ANTICIPATED BARRIERS TO DISCHARGE:: None identified TRANSPORTATION:: Via private automobile with family at time of discharge. PLAN:: Tone had an open cholecystectomy performed by Dr. Burch this morning. It is anticipated that he will return home in a couple of days. He may need Home Health with halfway for dressing changes. will continue to provide support to patient, family, care team and ongoing discharge planning.
--- NOTE | 2019-01-30 17:54 | ROE_ITS ---
DATE OF PROCEDURE: January 30, 2019 PREOPERATIVE DIAGNOSIS: Acute cholecystitis/cholelithiasis. POSTOPERATIVE DIAGNOSIS: Gangrenous cholecystitis/cholelithiasis. PROCEDURE: Attempted laparoscopic and converted to open cholecystectomy. SURGEON: Tracie Burch D.O. ROBOTIC MAINTENANCE TECHNICIAN: Chance Antunez and Chance Pruett ANESTHESIA: General. ESTIMATED BLOOD LOSS: 150 cc's DRAINS: KANCHAN was placed in the gallbladder fossa. CONDITION: The patient tolerated the procedure well without complication and transferred to Recovery Room in stable condition. HISTORY: Mr. Peter is a 53-year-old male who was admitted through the Emergency Department yesterda y with acute cholecystitis/cholelithiasis. He actually had gallstone pancreatitis. His pancreas enz ymes have returned to normal today. His bilirubin was normal. He still continues to have significan t epigastric and back pain and is here today for a cholecystectomy. Informed consent was obtained, e xplaining risks and benefits of the procedure, included but not limited to bleeding, infection, pneum onia, blood clots, possible damage to bowel, bladder, blood vessels, bile ducts, possible open proced ure, complications of anesthesia and other unforetold complications. PROCEDURE DESCRIPTION: The patient is brought to the operative room suite and placed in the supine p osition. Anesthesia is administered per the Department of Anesthesia. He did receive preop antibiot ics. NG tube and Wilson catheter are placed. The patient is prepped and draped in the usual sterile fashion using a ChloraPrep scrub solution. A time-out is performed. 30 cc's of 0.25% Marcaine is us ed for local anesthetization at the umbilicus. A #11 blade is used to make an incision. We had difficulty when attempting to place the Veress needl e, so a cutdown was performed. We had difficulty placing the scope and insufflating as the omentum w as adhered up to the anterior abdominal wall. Once we get the camera inserted, a 12 mm port is then placed in the epigastric position, as well as a 5 mm port in the right upper quadrant under direct vi sualization following creations of local field blocks. Visualization of the gallbladder reveals patc hy, gangrenous areas. It is thick-walled and distended and there are dense omental adhesions up to t he gallbladder. These do not readily peel away and it's very difficult to visualize the gallbladder and we have difficulty grasping it. At this point it was decided to convert the procedure to open. All laparoscopic instruments are removed and passed off the field. The pneumoperitoneum is evacuated . The fascia under the umbilicus is closed with #0 Vicryl. The port is irrigated. The deep tissue is approximated with #2-0 Vicryl and the skin is approximated with madhavi. A standard Abhi incision is made in the right upper quadrant using a #10 blade and connecting our t wo port sites. Electrocautery was used to provide hemostasis and dissect down through the fascia. T he muscle is elevated and divided over a Marge. The peritoneum is elevated and the abdomen is entere d sharply. There is a scant amount of serous fluid from inflammation. The bowel is not run; it is p acked away. The stomach is packed away. NG tube is in good position. Candace's and Jimenez heart are used to facilitate visualization. Bile is aspirated from the gallbladder - this is sent for cul turshane. He does have two large stones that are impacted in the neck of the gallbladder, which make vis ualization and mobilization of the gallbladder difficult. Eventually an incision was created in the fundus of the gallbladder and the stones removed; each of these is 2x2x2 cm or larger. The gallbladd er is then taken down from the liver using electrocautery. The gallbladder is packed and pressure is held. Surgicel is then placed in the gallbladder fossa to facilitate with hemostasis. There is jus t some general ooze from the liver bed secondary to inflammation and this is packed away. The cystic duct and artery are then identified. The cystic duct has some degree of gangrene/necrosis as well. Clips are placed across the duct and the artery and these structures are ligated. There is no sign of any bleeding or bile leakage. I did have good visualization in clipping and cutting the duct. The abdomen is then irrigated with a liter of saline. All saline was removed. A second piece of Nataliia gical is placed in the liver bed. There is no bleeding or bile leakage at the time of closure. A KANCHAN is placed into the abdomen and brought out through a separate stab incision. All sponge and needle counts are correct. The peritoneum and posterior fascia are closed with #1 PDS in a running fashion. The anterior fascia is closed with #1 PDS in a running fashion. The fat pad is irrigated. This is closed with #2-0 Rufino ryl in a running fashion. Jetmore and a Preva dressing system were applied. The KANCHAN was sewn in sepa rately with #2-0 Nylon. Once we did get off the table, there is noted to be some bile staining in t he KANCHAN drain. We will see if this resolves spontaneously. If not, the patient may need to go for an ERCP and stent. There was some concern over some chest pain. Family does state the patient has be en complaining of chest pain for a long period of time. I believe this is actually pain from his gal lbladder, but we will keep him overnight in ICU and on telemetry for monitoring. The patient did well postop and on a stretcher to the recovery room in stable condition. The hospitalist will be asked to see the patient and follow along in case there is any cardiac involv ement. cc: Vero Flores M.D.
--- NOTE | 2019-01-30 18:49 | MCONE_ITS ---
Date of service: 01/30/19 Time of Service: 18:49 Assessment and Plan (1) Chest pain: Current visit: Yes Status: Acute Patient reports onset of chest pain that appears to be either substernal or radiating to the right upper chest, now ongoing for approximately 1 year. He also reports concurrent SLAUGHTER. Mr. Peter reports that his symptoms have become significantly limiting, and that he is no longer able to climb a significant number of stairs or walk great distances without resting. He attributes this to the development of shortness of breath along with chest discomfort. Symptoms are concerning, and certainly cannot rule out potential cardiac origin. 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 He also has evidence of pulmonary nodules on imaging, and ongoing progressive SLAUGHTER over the last year. The patient will ultimately need workup of these nodules, PFTs, and follow-up with a certified medical assistant. Will also recommend an eventual stress test for an isc hemic evaluation, but as he is immediately postop for an open cholecystectomy this will have to be done at a later time. For now his EKG was reviewed and nonischemic - will maintain patient on telemetry and repeat an EKG in the morning, check a troponin level now and again in the morning, and check an ECHO as well. Will monitor closely for any anginal symptoms overnight, with SL NTG if needed. No evidence of dissection by CT. (2) Pulmonary nodule seen on imaging study: Current visit: Yes Status: Acute Work-up as mentioned above, likely as outpatient. History of Present Illness Narrative: 53-year-old man with a past medical history significant for MEN type I, admitted from [facility] Emergency Department on 01/30 with a diagnosis of acute cholecystitis. Mr. Peter has a prior history of MEM type I, with prior surgeries reported on his parathyroid. He also has a prior history of kidney stones. The patient presented to the ED with complaints of abdominal pain. In discussion with family it appears that he been having discomfort for quite some time, but reportedly worsened acutely overnight. Upon presentation to the ED also reported ongoing chest discomforts over the last year. Workup included labs and CT angiogram of the chest and abdomen. His labs were significant for leukocyto sis, mildly elevated lipase, and minimal elevation in corrected calcium. His LFTs were surprisingly normal, as imaging showed evidence of gallbladder wall thickening. There was no evidence of an aortic dissection, but instead noted multiple noncalcified pulmonary nodules. An ultrasound confirmed cholelithiasis with acute cholecystitis. The patient was initiated antibiotic therapy, admitted and taken to the OR where he underwent an attempted laparoscopic converted to open cholecystectomy. Medicine service was consulted regarding the patient's complaints of chest pain. Review of Systems Review of Systems All systems reviewed & are unremarkable except as noted in HPI and below PFSH Medical History Hyperplasia of parathyroid (Acute) Gangrenous cholecystitis (Acute) Pulmonary nodule seen on imaging study (Acute) Hyperparathyroidism type 1 (Acute) Acute cholecystitis due to biliary calculus (Acute) Acute gallstone pancreatitis (Acute) MEN I (multiple endocrine neoplasia) (Acute) Kidney stones (Chronic) Internal derangement of left knee (Acute) Kidney stone (Chronic) Left patella fracture (Chronic) Social History Smoking/Tobacco Use Status: Never Drug use: Current Sobriety Substance use type: marijuana Do you feel safe at home: Yes Do you feel safe in your relationship?: Yes Exam Narrative Exam Narrative: General: Patient appears mildly uncomfortable, AAOX3, NAD. NGT in place. Neck: Supple CV: Regular, nontachycardic, S1S2, No rubs, murmurs, or gallops. Pulmonary: Clear to auscultation bilaterally, no crackles, wheezing, or rhonchi on limited anterior and lateral exam Abdomen: Bowel Sounds hypoactive, soft, tender and distended post-op Vascular: No lower extremity edema Psych: Normal mood and affect. Results Last Vital Signs Temp 36.9 C 01/30/19 15:36 Pulse 89 01/30/19 18:01 Resp 22 01/30/19 18:01 BP 169/77 H 01/30/19 18:01 Pulse Ox 95 01/30/19 18:01 Labs : 01/30/19 07:55 01/30/19 07:55 Laboratory Results - last 24 hr 01/29/19 01/29/19 01/30/19 09:30 09:30 07:55 WBC RBC Hgb Hct MCV MCH MCHC RDW Plt Count MPV Immature Gran % Neutrophils % Lymphocytes % Monocytes % Eosinophils % Basophils % Absolute Neutrophils Absolute Lymphocytes Absolute Monocytes Absolute Eosinophils Absolute Basophils Differential Comment RBC Morphology Sodium 135 L Potassium 3.5 Chloride 99 Carbon Dioxide 27.3 Anion Gap 8.7 BUN 14 Creatinine 0.87 Estimated GFR/1.73 m2 >= 60.00 Glucose 115 H Calcium 9.5 Total Bilirubin 1.0 AST 25 ALT 44 Alkaline Phosphatase 105 Total Protein 6.7 Albumin 2.9 L Triglycerides 74 Total Cholesterol 153 LDL Cholesterol Direct 97 HDL Cholesterol 41 Amylase 34 Lipase 150 TSH 0.92 Prolactin 8.8 PTH Intact 124 H 01/30/19 07:55 WBC 12.63 H RBC 4.76 Hgb 14.3 Hct 43.5 MCV 91.4 MCH 30.0 MCHC 32.9 RDW 12.9 Plt Count 258 MPV 10.9 Immature Gran % 0.2 Neutrophils % 75.6 Lymphocytes % 9.9 Monocytes % 13.1 Eosinophils % 1.0 Basophils % 0.2 Absolute Neutrophils 9.55 H Absolute Lymphocytes 1.25 Absolute Monocytes 1.65 H Absolute Eosinophils 0.13 Absolute Basophils 0.03 Differential Comment Diff reviewed RBC Morphology Normal Sodium Potassium Chloride Carbon Dioxide Anion Gap BUN Creatinine Estimated GFR/1.73 m2 Glucose Calcium Total Bilirubin AST ALT Alkaline Phosphatase Total Protein Albumin Triglycerides Total Cholesterol LDL Cholesterol Direct HDL Cholesterol Amylase Lipase TSH Prolactin PTH Intact
[2019-01-30] MEDS: ACETAMINOPHEN 1,000 MG/100 ML BTL 400 MG IVPB (21:38)
[2019-01-30] MEDS: Normal Saline 500 ML IV (21:39)
[2019-01-31] VITALS (48 sets, daily range): BP systolic 106–160; BP diastolic 45–87; PULSE 67–117; RESP 13–27; TEMP 36.4–37.4; O2SAT 88–96
[2019-01-31] MEDS: Normal Saline Flush 10 ML SYR IVP ×6 (01:54→19:06)
[2019-01-31] MEDS: HYDROmorphone 2 MG/ML VIAL 1 MG IVP ×3 (01:54→09:09)
[2019-01-31] MEDS: Lactated Ringers 1,000 ML 120 ML IV ×2 (01:54→10:37)
[2019-01-31] MEDS: ACETAMINOPHEN 1,000 MG/100 ML BTL 400 MG IVPB ×3 (05:38→21:17)
[2019-01-31 07:12] LABS: HCT 41.2 % (40.0-50.0); HGB 13.4 g/dL (13.5-17.5); Mean Corp. HGB Concentration 32.5 g/dL (32.0-36.0); Mean Corpuscular Hemoglobin 30.3 pg (27.0-33.0); Mean Corpuscular Volume 93.2 fL (80-95); Mean Platelet Volume 10.7 fL (8.0-11.0); Platelet Count 236 x1000/uL (130-400); RBC 4.42 m/cumm (4.50-6.00); RBC Distribution Width 12.9 % (11.8-14.1); White Blood Cell Count 15.79 k/cumm (4.4-10.8)
--- NOTE | 2019-01-31 07:29 | PGE_ITS ---
Documented by User: JOSELIN Antunez 01/31/19 10:00 Date of Service Date of service: 01/31/19 Time of Service: 07:23 Assessment and Plan (1) Gangrenous cholecystitis: Current visit: No Status: Acute POD #1 s/p open cholecystectomy. Patient is diaphoretic and afebrile. He appears ill and reports 8/10PL. KANCHAN drain in place with bile appearing fluid- 70cc out over night NG tube currently 450cc in canister Dark green/brown, thick fluid PAIN- Dilaudid and Morphine are ordered. Ordered Benzocaine lozenges for sore throat secondary to NG tube. DIET- NPO, may have ice chips and have hard candy while NG tube is in place Labs Pending (2) MEN I (multiple endocrine neoplasia): Current visit: No Status: Acute Subjective Interval history since last seen: I am just really hot and my throat is sore. Patient reports that his pain is currently 8/10PL mostly located on the RUQ incision site. He feels that the pain medication is helping and allows him a couple of hours of relief. He reports that he continues to have back pain, which he described as the same as yesterday however he is unsure if this is due to the beds. Denies nausea and vomiting at this time. Exam Const General: cooperative, diaphoretic and ill appearing Orientation: alert and oriented x3 Resp Effort & Inspection: normal respiratory effort, no audible wheezes and no cough Cardio Rate: regular rate Rhythm: regular rhythm Heart Sounds: S1 normal and S2 normal GI Inspection: normal to inspection and incision (Prevena in place over incision site. ) Palpation: soft and tender in the epigastrum, in the RLQ and in the RUQ Auscultation: hypoactive bowel sounds Other: NG tube in place, with dark green/brown colored drainage KANCHAN drain in place with bile looking drainage. Objective Objective Clinical Data: Abnormal lab results 01/29/19 01/30/19 01/30/19 Range/Units 09:30 07:55 07:55 WBC 12.63 H (4.4-10.8) k/cumm Absolute Neutrophils 9.55 H (1.2-6.7) k/cumm Absolute Monocytes 1.65 H (0.11-0.7) k/cumm Sodium 135 L (136-145) mmol/L Glucose 115 H (70-100) mg/dL Albumin 2.9 L (3.4-5.0) g/dL PTH Intact 124 H (19-88) pg/mL Vital Signs Temperature 36.8 C 01/31/19 03:36 Temperature Source Temporal Artery Scan 01/31/19 03:36 Pulse 102 H 01/31/19 06:00 Pulse Rhythm Regular 01/30/19 09:00 Pulse 115 H 01/31/19 06:01 Respiratory Rate 16 01/31/19 06:01 Respiratory Effort 01/31/19 03:37 Respiratory Depth Normal 01/31/19 03:37 Respiratory Pattern Normal 01/31/19 03:37 Blood Pressure 147/80 H 01/31/19 06:00 Blood Pressure Mean 94 01/31/19 06:00 Pulse Oximetry 94 L 01/31/19 06:01 Respiratory End-tidal CO2 39 01/30/19 15:03 Oxygen Delivery Method Nasal Cannula 01/31/19 03:37 Oxygen Flow Rate 2 01/31/19 03:37 Pain Level 8 01/31/19 04:17 Comment pt woke at midnight with 01/29/19 08:52 Intake & Output 01/30/19 01/31/19 01/31/19 18:59 06:59 18:59 Intake Total 2646 / 3833.837 1187.837 / 3833.837 Output Total 1350 / 2730 1380 / 2730 Balance 1296 / 1103.837 -192.163 / 1103.837 Weight 110.4 kg 109.5 kg Intake: IV 2646 / 3763.837 1117.837 / 3763.837 Injectate 70 / 70 Right Abdomen 70 / 70 Output: Gastric Drainage 250 / 250 Right Nare 250 / 250 Drainage 175 / 405 230 / 405 Right Abdomen 175 / 405 230 / 405 Urine 1025 / 1925 900 / 1925 Estimated Blood Loss 150 / 150 Other: Urine Color Light Yesenia Yellow Urine Appearance Clear Clear Urine Odor Strong Comment Indwelling westbrook catheter Emesis Description None Gastric Occult Blood Right Nare Positive Laboratory Results WBC 12.63 k/cumm (4.4-10.8) H 01/30/19 07:55 RBC 4.76 m/cumm (4.50-6.00) 01/30/19 07:55 Hgb 14.3 g/dL (13.5-17.5) 01/30/19 07:55 Hct 43.5 % (40.0-50.0) 01/30/19 07:55 MCV 91.4 fL (80-95) 01/30/19 07:55 MCH 30.0 pg (27.0-33.0) 01/30/19 07:55 MCHC 32.9 g/dL (32.0-36.0) 01/30/19 07:55 RDW 12.9 % (11.8-14.1) 01/30/19 07:55 Plt Count 258 x1000/uL (130-400) 01/30/19 07:55 MPV 10.9 fL (8.0-11.0) 01/30/19 07:55 Immature Gran % 0.2 01/30/19 07:55 Neutrophils % 75.6 01/30/19 07:55 Lymphocytes % 9.9 01/30/19 07:55 Monocytes % 13.1 01/30/19 07:55 Eosinophils % 1.0 01/30/19 07:55 Basophils % 0.2 01/30/19 07:55 Absolute Neutrophils 9.55 k/cumm (1.2-6.7) H 01/30/19 07:55 Absolute Lymphocytes 1.25 k/cumm (1.2-3.4) 01/30/19 07:55 Absolute Monocytes 1.65 k/cumm (0.11-0.7) H 01/30/19 07:55 Absolute Eosinophils 0.13 k/cumm (0.0-0.7) 01/30/19 07:55 Absolute Basophils 0.03 k/cumm (0.0-0.2) 01/30/19 07:55 Differential Comment Diff reviewed 01/30/19 07:55 RBC Morphology Normal 01/30/19 07:55 Sodium 135 mmol/L (136-145) L 01/30/19 07:55 Potassium 3.5 mmol/L (3.5-5.1) 01/30/19 07:55 Chloride 99 mmol/L (98-107) 01/30/19 07:55 Carbon Dioxide 27.3 mmol/L (21.0-32.0) 01/30/19 07:55 Anion Gap 8.7 mmol/L (3-11) 01/30/19 07:55 BUN 14 mg/dL (7-18) 01/30/19 07:55 Creatinine 0.87 mg/dL (0.70-1.30) 01/30/19 07:55 Estimated GFR/1.73 m2 >= 60.00 (mL/min/1.73m2) 01/30/19 07:55 Glucose 115 mg/dL (70-100) H 01/30/19 07:55 Calcium 9.5 mg/dL (8.5-10.1) 01/30/19 07:55 Total Bilirubin 1.0 mg/dL (0.2-1.0) 01/30/19 07:55 AST 25 U/L (15-37) 01/30/19 07:55 ALT 44 U/L (12-78) 01/30/19 07:55 Alkaline Phosphatase 105 U/L (46-116) 01/30/19 07:55 Total Protein 6.7 g/dL (6.4-8.2) 01/30/19 07:55 Albumin 2.9 g/dL (3.4-5.0) L 01/30/19 07:55 Triglycerides 74 mg/dL (30-150) 01/30/19 07:55 Total Cholesterol 153 mg/dL (50-200) 01/30/19 07:55 LDL Cholesterol Direct 97 mg/dL (<100) 01/30/19 07:55 HDL Cholesterol 41 mg/dL (40-60) 01/30/19 07:55 Amylase 34 U/L (25-115) 01/30/19 07:55 Lipase 150 U/L (73-393) 01/30/19 07:55 TSH 0.92 uIU/mL (0.358-3.74) 01/30/19 07:55 Prolactin 8.8 ng/mL (2.1-17.7) 01/29/19 09:30 PTH Intact 124 pg/mL (19-88) H 01/29/19 09:30 Urine Color Dark yellow (Yellow) 01/29/19 09:15 Urine Clarity Clear 01/29/19 09:15 Urine pH 7.0 (5-8) 01/29/19 09:15 Ur Specific [place] 1.025 (1.005-1.025) 01/29/19 09:15 Urine Protein 30 mg/dL (Negative) H 01/29/19 09:15 Urine Ketones Negative mg/dL (Negative) 01/29/19 09:15 Urine Blood Negative (Negative) 01/29/19 09:15 Urine Nitrite Negative (Negative) 01/29/19 09:15 Urine Bilirubin Negative (Negative) 01/29/19 09:15 Urine Urobilinogen 2.0 EU/dL (Up TO 0.2) H 01/29/19 09:15 Ur Leukocyte Esterase Negative (Negative) 01/29/19 09:15 Urine RBC Negative (0-2) 01/29/19 09:15 Urine WBC 0-2 HPF (0-5) 01/29/19 09:15 Ur Epithelial Cells Rare HPF (Negative) 01/29/19 09:15 Urine Crystals Negative HPF (Negative) 01/29/19 09:15 Urine Bacteria Rare HPF (Negative) 01/29/19 09:15 Urine Casts Negative LPF (Negative) 01/29/19 09:15 Urine Mucus Moderate (Negative) 01/29/19 09:15 Ur Culture Indicated? No 01/29/19 09:15 Urine Glucose 500 mg/dL (Negative) H 01/29/19 09:15 Documented by User: Tracie Burch DO 02/07/19 14:30 Assessment and Plan (1) Bile leak, postoperative: Current visit: No Status: Acute Pt seen and examined. Agree with above. Pt is doing OK. still having high insicional pain. Pt refuses epidural. will add in [employer] for better pain control Pt does have bile in drain- about 70cc per shift. Will need to go for ERCP and stent- d/w pt and plan [place] [facility] [place] Pt is ill/postOp state, but hemodynamically stable. D/w pt findings at time of surgery. Severe GS Dx. The chest pain that the pt had been experiencing preOp was most likely due to gallstones, however, in process of cardiac work up. appreciate hosp input- thank you. cont w/ supportive care. transfer (prob) in am for ERCP and stent. D/w Jose will assume care in my absence
[2019-01-31 07:37] LABS: ALT 69 U/L (12-78); AST 37 U/L (15-37); Albumin 2.4 g/dL (3.4-5.0); Alkaline Phosphatase 104 U/L (46-116); Amylase 22 U/L (25-115); Anion Gap 8.8 mmol/L (3-11); BUN 14 mg/dL (7-18); Bilirubin, Total 0.9 mg/dL (0.2-1.0); CO2 27.2 mmol/L (21.0-32.0); CREATININE 0.87 mg/dL (0.70-1.30); Chloride 101 mmol/L (98-107); Glucose 128 mg/dL (70-100); Lipase 70 U/L (73-393); Potassium 3.5 mmol/L (3.5-5.1); Sodium 137 mmol/L (136-145); Total Protein 6.3 g/dL (6.4-8.2)
[2019-01-31] MEDS: Pantoprazole 40 MG VIAL IVP (07:38)
[2019-01-31 07:41] LABS: Calcium 9.5 mg/dL (8.5-10.1)
[2019-01-31 07:43] LABS: Troponin I < 0.02 ng/mL (0.00-0.06)
[2019-01-31] MEDS: metroNIDAZOLE 500 MG/100 ML BAG 100 MG IVPB ×2 (07:43→16:37)
--- NOTE | 2019-01-31 07:46 | PDOC.CMPRO ---
- If Service Date Differs Date of service: 01/31/19 Time of Service: 07:47 Care Management Progress Note S/O:Martin was lying in bed this morning during CM visit. He said he was still having pain but has been receiving pain medication every couple of hours and that it helps. He talked at length about his home situation. He is a single parent with a 15 year daughter and a son living at home. 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 He feels stressed with all of this responsibility. He said he realizes that he needs to take better care of himself as he does not want anything to happen to him for his children's sake. He lost a close friend last year who had cancer and his mother also of cancer. A:Martin is a 53 year old man who was admitted with cholecystitis and pancreatitis secondary to gallstones. P:Tone had an open cholecystectomy performed by Dr. Burch this morning. It is anticipated that he will return home in a couple of days. He may need Home Health with detention for dressing changes. will continue to provide support to patient, family, care team and ongoing discharge planning.
[2019-01-31 08:16] LABS: Absolute Lymphocyte Count 0.47 k/cumm (1.2-3.4); Absolute Monocyte Count 1.74 k/cumm (0.11-0.7); Absolute Neutrophil Count 13.58 k/cumm (1.2-6.7)
[2019-01-31 08:17] LABS: Diff Comment Manual Differential; Other Cells 0; Promyelocytes % 0 %; RBC Morphology Normal
--- NOTE | 2019-01-31 09:00 | MERGE_ITS ---
*[facility]* *[facility]* [address] [place] [address] Date of study: 01/31/2019 Transthoracic Echocardiography M-mode, complete 2D, complete spectral Doppler, and color Doppler *STUDY CONCLUSIONS* Summary: 1. Left ventricle: The cavity size was normal. Wall thickness was increased in a pattern of mild LVH. Systolic function was normal. The estimated ejection fraction was 55-60%. Wall motion was normal; there were no regional wall motion abnormalities. Diastolic parameters were normal. 2. Mitral valve: There was mild regurgitation. 3. Right ventricle: The cavity size was normal. Wall thickness was normal. Systolic function was normal. *PATIENT PRESENTATION* Height: 167.6cm ((66in) ) S/D Pressure: 147 / 80 Weight: 110.2kg ((242.5lb) ) BSA: 2.32m^2 Test start time: 09:15 AM. Test stop time: 10:15 AM. PERFORMING Unknown ORDERING Camden Mendoza REFERRING Camden Mendoza CONSULTING Vero Flores PERFORMING [facility] COLLEGE ADMINISTRATOR RT Roland Almeida)(YANCI)MASHA *PROCEDURE DATA* Procedure information: The patient was identified by two identifiers. This study was interpreted by [facility]. Pertinent images and digital data are archived for permanent storage and are available for subsequent review. No prior study was available for comparison. Study status: Routine. Transthoracic echocardiography. M-mode, complete 2D, complete spectral Doppler, and color Doppler. A Transthoracic Echocardiogram was performed. Scanning was performed from the parasternal, apical, subcostal, and suprasternal notch acoustic windows. Images were obtained using an [id number] cardiac ultrasound machine. Image quality was adequate. Study completion: The patient tolerated the procedure well. There were no complications. 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 *CARDIAC ANATOMY* Left ventricle: The cavity size was normal. Wall thickness was increased in a pattern of mild LVH. Systolic function was normal. The estimated ejection fraction was 55-60%. Wall motion was normal; there were no regional wall motion abnormalities. Diastolic parameters were normal. Aortic valve: Trileaflet; normal thickness leaflets. Mobility was not restricted. Doppler: Transvalvular velocity was within the normal range. There was no stenosis. There was no significant regurgitation. VTI ratio of LVOT to aortic valve: 0.62. Valve area (VTI): 1.9cm^2. Indexed valve area (VTI): 0.8cm^2/m^2. Peak velocity ratio of LVOT to aortic valve: 0.58. Valve area (Vmax): 1.8cm^2. Indexed valve area (Vmax): 0.8cm^2/m^2. Mean velocity ratio of LVOT to aortic valve: 0.55. Valve area (Vmean): 1.7cm^2. Indexed valve area (Vmean): 0.7cm^2/m^2. Mean gradient (S): 8.4mm Hg. Peak gradient (S): 15.6mm Hg. Aorta: Aortic root: The aortic root was normal in size. Ascending aorta: The ascending aorta was normal in size. Mitral valve: Structurally normal valve. Mobility was not restricted. Doppler: Transvalvular velocity was within the normal range. There was no evidence for stenosis. There was mild regurgitation. Valve area by pressure half-time: 4.5cm^2. Indexed valve area by pressure half-time: 1.9cm^2/m^2. Peak gradient (D): 2.8mm Hg. Left atrium: The atrium was normal in size. Right ventricle: The cavity size was normal. Wall thickness was normal. Systolic function was normal. Pulmonic valve: Structurally normal valve. Doppler: Transvalvular velocity was within the normal range. There was no evidence for stenosis. There was no significant regurgitation. Peak gradient (S): 6.1mm Hg. Tricuspid valve: Structurally normal valve. Doppler: Transvalvular velocity was within the normal range. There was no evidence for stenosis. There was trivial regurgitation. Pulmonary artery: Pulmonary systolic pressure was within the normal range, in the range of 30mm Hg to 35mm Hg. Right atrium: The atrium was normal in size. Pericardium: There was no pericardial effusion. Systemic veins: Inferior vena cava: Not well visualized. The vessel was patent and normal in size. Baseline ECG: Normal sinus rhythm. Measurements Left ventricle Value Reference LV ID, ED, PLAX 4.5 cm 3.5 - 6.0 LV ID, ES, PLAX 3.1 cm 2.1 - 4.0 LV PW thickness, ED, PLAX 1.4 cm LV end-diastolic volume, 1-p A2C 141 ml LV ejection fraction, 1-p A2C 61 % LV end-diastolic volume, 1-p A4C 103 ml LV ejection fraction, 1-p A4C 58 % LV e', lateral 0.106 m/sec LV E/e', lateral 8 LV e', medial 0.082 m/sec LV E/e', medial 10 LV e', average 0.094 m/sec LV E/e', average 9 Ventricular septum Value Reference IVS thickness, ED, PLAX 1.3 cm LVOT Value Reference LVOT ID, A-P 2.0 cm LVOT area 3.1 cm^2 LVOT peak velocity, S 1.15 m/sec LVOT mean velocity, S 0.73 m/sec LVOT VTI, S 19.1 cm LVOT peak gradient, S 5.3 mm Hg LVOT mean gradient, S 2.6 mm Hg Stroke volume (SV), LVOT DP 60 ml Stroke index (SV/bsa), LVOT DP 26 ml/m^2 Aortic valve Value Reference Aortic valve peak velocity, S 2 m/sec Aortic valve mean velocity, S 1.34 m/sec Aortic valve VTI, S 31.0 cm Aortic mean gradient, S 8.4 mm Hg Aortic peak gradient, S 15.6 mm Hg VTI ratio, LVOT/AV 0.62 Aortic valve area, VTI 1.9 cm^2 Velocity ratio, peak, LVOT/AV 0.58 Aortic valve area, peak velocity 1.8 cm^2 Velocity ratio, mean, LVOT/AV 0.55 Aortic valve area, mean velocity 1.7 cm^2 Aortic valve area/bsa, mean velocity 0.7 cm^2/m^2 Aorta Value Reference Aortic root ID, ED 3.2 cm Ascending aorta ID, A-P, S 3.4 cm Left atrium Value Reference LA ID, A-P, ES 3.4 cm LA ID/bsa, A-P 1.5 cm/m^2 <=2.2 LA area, ES, A4C 20.7 cm^2 8.8 - 23.4 LA area, ES, A2C 20 cm^2 LA volume/bsa, ES, 1-p A4C 30 ml/m^2 LA volume, ES, 2-p 56 ml LA volume/bsa, ES, 2-p 24 ml/m^2 LA/aortic root ratio 1.07 Mitral valve Value Reference Mitral E-wave peak velocity 0.83 m/sec Mitral A-wave peak velocity 0.75 m/sec Mitral deceleration time 169 ms 150 - 230 Mitral pressure half-time 49 ms Mitral peak gradient, D 2.8 mm Hg Mitral E/A ratio, peak 1.11 Mitral valve area, PHT, DP 4.5 cm^2 Tricuspid valve Value Reference Tricuspid regurg peak velocity 3 m/sec Tricuspid peak RV-RA gradient 36.4 mm Hg Right atrium Value Reference RA area, ES, A4C 15.1 cm^2 8.3 - 19.5 Pulmonic valve Value Reference Pulmonic peak gradient, S 6.1 mm Hg Legend: (L) and (H) alvaro values outside specified reference range. I have personally reviewed the images and have reviewed and edited the reported findings. Electronically signed by Cj Centeno 01/31/2019 10:58
--- NOTE | 2019-01-31 09:43 | PGE_ITS ---
Date of Service Date of service: 01/31/19 Time of Service: 09:42 Assessment and Plan (1) Gangrenous cholecystitis: Current visit: No Status: Acute (2) Bile leak, postoperative: Current visit: No Status: Acute Subjective Patient reports: feels better, still having pain, flatus, nausea, vomiting and fever; denies shortness of breath Objective Objective Clinical Data: Abnormal lab results 01/29/19 01/31/19 01/31/19 Range/Units 09:30 06:31 06:31 WBC 15.79 H (4.4-10.8) k/cumm RBC 4.42 L (4.50-6.00) m/cumm Hgb 13.4 L (13.5-17.5) g/dL Absolute Neutrophils 13.58 H (1.2-6.7) k/cumm Absolute Lymphocytes 0.47 L (1.2-3.4) k/cumm Absolute Monocytes 1.74 H (0.11-0.7) k/cumm Glucose 128 H (70-100) mg/dL Total Protein 6.3 L (6.4-8.2) g/dL Albumin 2.4 L (3.4-5.0) g/dL Amylase 22 L (25-115) U/L Lipase 70 L (73-393) U/L PTH Intact 124 H (19-88) pg/mL Vital Signs Temperature 36.8 C 01/31/19 03:36 Temperature Source Temporal Artery Scan 01/31/19 03:36 Pulse 102 H 01/31/19 06:00 Pulse Rhythm Regular 01/30/19 09:00 Pulse 115 H 01/31/19 06:01 Respiratory Rate 16 01/31/19 06:01 Respiratory Effort 01/31/19 03:37 Respiratory Depth Normal 01/31/19 03:37 Respiratory Pattern Normal 01/31/19 03:37 Blood Pressure 147/80 H 01/31/19 06:00 Blood Pressure Mean 94 01/31/19 06:00 Pulse Oximetry 94 L 01/31/19 06:01 Respiratory End-tidal CO2 39 01/30/19 15:03 Oxygen Delivery Method Nasal Cannula 01/31/19 03:37 Oxygen Flow Rate 2 01/31/19 03:37 Pain Level 9 01/31/19 07:39 Comment pt woke at midnight with 01/29/19 08:52 Intake & Output 01/30/19 01/30/19 01/31/19 11:59 23:59 11:59 Intake Total 1250 / 4117.837 2867.837 / 4117.837 886 / 886 Output Total 350 / 0 1640 / 2050 740 / 740 Balance 900 / 2067.837 1227.837 / 2067.837 146 / 146 Weight 110.4 kg 109.5 kg Intake: IV 1250 / 4117.837 2867.837 / 4117.837 746 / 746 Injectate 140 / 140 Right Abdomen 140 / 140 Output: Gastric Drainage 250 / 250 Right Nare 250 / 250 Drainage 215 / 275 190 / 190 Right Abdomen 215 / 275 190 / 190 Urine 350 / 1375 1025 / 1375 550 / 550 Estimated Blood Loss 150 / 150 Other: Urine Color Yellow Yellow Yellow Urine Appearance Clear Clear Clear Urine Odor Strong Comment Westbrook in place Indwelling westbrook catheter Emesis Description None Gastric Occult Blood Right Nare Positive Positive Laboratory Results WBC 15.79 k/cumm (4.4-10.8) H 01/31/19 06:31 RBC 4.42 m/cumm (4.50-6.00) L 01/31/19 06:31 Hgb 13.4 g/dL (13.5-17.5) L 01/31/19 06:31 Hct 41.2 % (40.0-50.0) 01/31/19 06:31 MCV 93.2 fL (80-95) 01/31/19 06:31 MCH 30.3 pg (27.0-33.0) 01/31/19 06:31 MCHC 32.5 g/dL (32.0-36.0) 01/31/19 06:31 RDW 12.9 % (11.8-14.1) 01/31/19 06:31 Plt Count 236 x1000/uL (130-400) 01/31/19 06:31 MPV 10.7 fL (8.0-11.0) 01/31/19 06:31 Immature Gran % 0.0 01/31/19 06:31 Neutrophils % 86.0 01/31/19 06:31 Lymphocytes % 3.0 01/31/19 06:31 Monocytes % 11.0 01/31/19 06:31 Eosinophils % 0.0 01/31/19 06:31 Basophils % 0.0 01/31/19 06:31 Metamyelocytes % 0.0 % 01/31/19 06:31 Myelocytes % 0.0 % 01/31/19 06:31 Promyelocytes % 0 % 01/31/19 06:31 Absolute Neutrophils 13.58 k/cumm (1.2-6.7) H 01/31/19 06:31 Absolute Lymphocytes 0.47 k/cumm (1.2-3.4) L 01/31/19 06:31 Absolute Monocytes 1.74 k/cumm (0.11-0.7) H 01/31/19 06:31 Absolute Eosinophils 0.00 k/cumm (0.0-0.7) 01/31/19 06:31 Absolute Basophils 0.00 k/cumm (0.0-0.2) 01/31/19 06:31 Differential Comment Manual differential 01/31/19 06:31 Other Cell Type 0 01/31/19 06:31 RBC Morphology Normal 01/31/19 06:31 Sodium 137 mmol/L (136-145) 01/31/19 06:31 Potassium 3.5 mmol/L (3.5-5.1) 01/31/19 06:31 Chloride 101 mmol/L (98-107) 01/31/19 06:31 Carbon Dioxide 27.2 mmol/L (21.0-32.0) 01/31/19 06:31 Anion Gap 8.8 mmol/L (3-11) 01/31/19 06:31 BUN 14 mg/dL (7-18) 01/31/19 06:31 Creatinine 0.87 mg/dL (0.70-1.30) 01/31/19 06:31 Estimated GFR/1.73 m2 >= 60.00 (mL/min/1.73m2) 01/31/19 06:31 Glucose 128 mg/dL (70-100) H 01/31/19 06:31 Hemoglobin A1c 6.0 % (4.5-6.2) 01/31/19 06:31 Calcium 9.5 mg/dL (8.5-10.1) 01/31/19 06:31 Total Bilirubin 0.9 mg/dL (0.2-1.0) 01/31/19 06:31 AST 37 U/L (15-37) 01/31/19 06:31 ALT 69 U/L (12-78) 01/31/19 06:31 Alkaline Phosphatase 104 U/L (46-116) 01/31/19 06:31 Troponin I < 0.02 ng/mL (0.00-0.06) 01/31/19 06:31 Total Protein 6.3 g/dL (6.4-8.2) L 01/31/19 06:31 Albumin 2.4 g/dL (3.4-5.0) L 01/31/19 06:31 Triglycerides 74 mg/dL (30-150) 01/30/19 07:55 Total Cholesterol 153 mg/dL (50-200) 01/30/19 07:55 LDL Cholesterol Direct 97 mg/dL (<100) 01/30/19 07:55 HDL Cholesterol 41 mg/dL (40-60) 01/30/19 07:55 Amylase 22 U/L (25-115) L 01/31/19 06:31 Lipase 70 U/L (73-393) L 01/31/19 06:31 TSH 0.92 uIU/mL (0.358-3.74) 01/30/19 07:55 Prolactin 8.8 ng/mL (2.1-17.7) 01/29/19 09:30 PTH Intact 124 pg/mL (19-88) H 01/29/19 09:30 Urine Color Dark yellow (Yellow) 01/29/19 09:15 Urine Clarity Clear 01/29/19 09:15 Urine pH 7.0 (5-8) 01/29/19 09:15 Ur Specific [place] 1.025 (1.005-1.025) 01/29/19 09:15 Urine Protein 30 mg/dL (Negative) H 01/29/19 09:15 Urine Ketones Negative mg/dL (Negative) 01/29/19 09:15 Urine Blood Negative (Negative) 01/29/19 09:15 Urine Nitrite Negative (Negative) 01/29/19 09:15 Urine Bilirubin Negative (Negative) 01/29/19 09:15 Urine Urobilinogen 2.0 EU/dL (Up TO 0.2) H 01/29/19 09:15 Ur Leukocyte Esterase Negative (Negative) 01/29/19 09:15 Urine RBC Negative (0-2) 01/29/19 09:15 Urine WBC 0-2 HPF (0-5) 01/29/19 09:15 Ur Epithelial Cells Rare HPF (Negative) 01/29/19 09:15 Urine Crystals Negative HPF (Negative) 01/29/19 09:15 Urine Bacteria Rare HPF (Negative) 01/29/19 09:15 Urine Casts Negative LPF (Negative) 01/29/19 09:15 Urine Mucus Moderate (Negative) 01/29/19 09:15 Ur Culture Indicated? No 01/29/19 09:15 Urine Glucose 500 mg/dL (Negative) H 01/29/19 09:15
[2019-01-31 10:37] LABS: Magnesium 1.6 mg/dL (1.8-2.4)
--- NOTE | 2019-01-31 11:13 | W.PM.PROGNOT ---
Date of Service Date of service: 01/31/19 Time of Service: 11:13 Assessment and Plan (1) Chest pain: Current visit: Yes Status: Acute Substernal CP radiating to the right upper chest, now ongoing for approximately 1 year, with concurrent SLAUGHTER. Symptoms are limiting, and patient is unable to perform strenuous activity without rest. Symptoms are concerning, and certainly cannot rule out potential cardiac origin. 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 He also has evidence of pulmonary nodules on imaging, and ongoing progressive SLAUGHTER over the last year. The patient will ultimately need workup of these nodules, PFTs, and follow-up with a aircraft de icer installer. Will also recommend an eventual stress test for an ischemic evaluation, but as he is immediately postop for an open cholecystectomy this will have to be done at a later time. For now his EKG was reviewed and nonischemic - am troponin negative, and ECHO normal and without wall motion abnormalities. Will maintain patient on telemetry and monitor symptoms for now. (2) Pulmonary nodule seen on imaging study: Current visit: Yes Status: Acute Work-up as mentioned above, likely as outpatient. Subjective Interval history since last seen: 53-year-old man with a past medical history significant for MEN type I, admitted from [facility] Emergency Department on 01/30 with a diagnosis of acute cholecystitis. Mr. Peter has a prior history of MEM type I, with prior surgeries reported on his parathyroid. He also has a prior history of kidney stones. The patient presented to the ED with complaints of abdominal pain. In discussion with family it appears that he been having discomfort for quite some time, but reportedly worsened acutely overnight. Upon presentation to the ED also reported ongoing chest discomforts over the last year. Workup included labs and CT angiogram of the chest and abdomen. His labs were significant for leukocytosis, mildly elevated lipase, and minimal elevation in corrected calcium. His LFTs were surprisingly normal, as imaging showed evidence of gallbladder wall thickening. There was no evidence of an aortic dissection, but instead noted multiple noncalcified pulmonary nodules. An ultrasound confirmed cholelithiasis with acute cholecystitis. The patient was initiated antibiotic therapy, admitted and taken to the OR where he underwent an attempted laparoscopic converted to open cholecystectomy. Medicine service was consulted regarding the patient's complaints of chest pain. EKG appears non-ischemic, and am troponin is negative. An ECHO was obtained and essentially normal. No overnight events reported. Patient remains afebrile since last evening. Exam Narrative Exam Narrative: General: Patient appears mildly uncomfortable, AAOX3, NAD. NGT in place. Neck: Supple CV: Regular, nontachycardic, S1S2, No rubs, murmurs, or gallops. Pulmonary: Clear to auscultation bilaterally, no crackles, wheezing, or rhonchi on limited anterior and lateral exam Abdomen: Bowel Sounds hypoactive, soft, tender and distended post-op Vascular: No lower extremity edema Psych: Normal mood and affect. Objective Objective Clinical Data: Abnormal lab results 01/29/19 01/31/19 01/31/19 Range/Units 09:30 06:31 06:31 WBC 15.79 H (4.4-10.8) k/cumm RBC 4.42 L (4.50-6.00) m/cumm Hgb 13.4 L (13.5-17.5) g/dL Absolute Neutrophils 13.58 H (1.2-6.7) k/cumm Absolute Lymphocytes 0.47 L (1.2-3.4) k/cumm Absolute Monocytes 1.74 H (0.11-0.7) k/cumm Glucose 128 H (70-100) mg/dL Magnesium 1.6 L (1.8-2.4) mg/dL Total Protein 6.3 L (6.4-8.2) g/dL Albumin 2.4 L (3.4-5.0) g/dL Amylase 22 L (25-115) U/L Lipase 70 L (73-393) U/L PTH Intact 124 H (19-88) pg/mL Vital Signs Temperature 36.8 C 01/31/19 03:36 Temperature Source Temporal Artery Scan 01/31/19 03:36 Pulse 102 H 01/31/19 06:00 Pulse Rhythm Regular 01/30/19 09:00 Pulse 115 H 01/31/19 06:01 Respiratory Rate 16 01/31/19 06:01 Respiratory Effort 01/31/19 03:37 Respiratory Depth Normal 01/31/19 03:37 Respiratory Pattern Normal 01/31/19 03:37 Blood Pressure 147/80 H 01/31/19 06:00 Blood Pressure Mean 94 01/31/19 06:00 Pulse Oximetry 94 L 01/31/19 06:01 Respiratory End-tidal CO2 39 01/30/19 15:03 Oxygen Delivery Method Nasal Cannula 01/31/19 03:37 Oxygen Flow Rate 2 01/31/19 03:37 Pain Level 7 01/31/19 08:39 Comment pt woke at midnight with 01/29/19 08:52 Intake & Output 01/30/19 01/30/19 01/31/19 11:59 23:59 11:59 Intake Total 1250 / 4117.837 2867.837 / 4117.837 1886 / 1886 Output Total 350 / 2050 1640 / 2050 740 / 740 Balance 900 / 2067.837 1227.837 / 2067.837 1146 / 1146 Weight 110.4 kg 109.5 kg Intake: IV 1250 / 4117.837 2867.837 / 4117.837 1746 / 1746 Injectate 140 / 140 Right Abdomen 140 / 140 Output: Gastric Drainage 250 / 250 Right Nare 250 / 250 Drainage 215 / 275 190 / 190 Right Abdomen 215 / 275 190 / 190 Urine 350 / 1375 1025 / 1375 550 / 550 Estimated Blood Loss 150 / 150 Other: Urine Color Yellow Yellow Yellow Urine Appearance Clear Clear Clear Urine Odor Strong Comment Westbrook in place Indwelling westbrook catheter Emesis Description None Gastric Occult Blood Right Nare Positive Positive Laboratory Results WBC 15.79 k/cumm (4.4-10.8) H 01/31/19 06:31 RBC 4.42 m/cumm (4.50-6.00) L 01/31/19 06:31 Hgb 13.4 g/dL (13.5-17.5) L 01/31/19 06:31 Hct 41.2 % (40.0-50.0) 01/31/19 06:31 MCV 93.2 fL (80-95) 01/31/19 06:31 MCH 30.3 pg (27.0-33.0) 01/31/19 06:31 MCHC 32.5 g/dL (32.0-36.0) 01/31/19 06:31 RDW 12.9 % (11.8-14.1) 01/31/19 06:31 Plt Count 236 x1000/uL (130-400) 01/31/19 06:31 MPV 10.7 fL (8.0-11.0) 01/31/19 06:31 Immature Gran % 0.0 01/31/19 06:31 Neutrophils % 86.0 01/31/19 06:31 Lymphocytes % 3.0 01/31/19 06:31 Monocytes % 11.0 01/31/19 06:31 Eosinophils % 0.0 01/31/19 06:31 Basophils % 0.0 01/31/19 06:31 Metamyelocytes % 0.0 % 01/31/19 06:31 Myelocytes % 0.0 % 01/31/19 06:31 Promyelocytes % 0 % 01/31/19 06:31 Absolute Neutrophils 13.58 k/cumm (1.2-6.7) H 01/31/19 06:31 Absolute Lymphocytes 0.47 k/cumm (1.2-3.4) L 01/31/19 06:31 Absolute Monocytes 1.74 k/cumm (0.11-0.7) H 01/31/19 06:31 Absolute Eosinophils 0.00 k/cumm (0.0-0.7) 01/31/19 06:31 Absolute Basophils 0.00 k/cumm (0.0-0.2) 01/31/19 06:31 Differential Comment Manual differential 01/31/19 06:31 Other Cell Type 0 01/31/19 06:31 RBC Morphology Normal 01/31/19 06:31 Sodium 137 mmol/L (136-145) 01/31/19 06:31 Potassium 3.5 mmol/L (3.5-5.1) 01/31/19 06:31 Chloride 101 mmol/L (98-107) 01/31/19 06:31 Carbon Dioxide 27.2 mmol/L (21.0-32.0) 01/31/19 06:31 Anion Gap 8.8 mmol/L (3-11) 01/31/19 06:31 BUN 14 mg/dL (7-18) 01/31/19 06:31 Creatinine 0.87 mg/dL (0.70-1.30) 01/31/19 06:31 Estimated GFR/1.73 m2 >= 60.00 (mL/min/1.73m2) 01/31/19 06:31 Glucose 128 mg/dL (70-100) H 01/31/19 06:31 Hemoglobin A1c 6.0 % (4.5-6.2) 01/31/19 06:31 Calcium 9.5 mg/dL (8.5-10.1) 01/31/19 06:31 Magnesium 1.6 mg/dL (1.8-2.4) L 01/31/19 06:31 Total Bilirubin 0.9 mg/dL (0.2-1.0) 01/31/19 06:31 AST 37 U/L (15-37) 01/31/19 06:31 ALT 69 U/L (12-78) 01/31/19 06:31 Alkaline Phosphatase 104 U/L (46-116) 01/31/19 06:31 Troponin I < 0.02 ng/mL (0.00-0.06) 01/31/19 06:31 Total Protein 6.3 g/dL (6.4-8.2) L 01/31/19 06:31 Albumin 2.4 g/dL (3.4-5.0) L 01/31/19 06:31 Triglycerides 74 mg/dL (30-150) 01/30/19 07:55 Total Cholesterol 153 mg/dL (50-200) 01/30/19 07:55 LDL Cholesterol Direct 97 mg/dL (<100) 01/30/19 07:55 HDL Cholesterol 41 mg/dL (40-60) 01/30/19 07:55 Amylase 22 U/L (25-115) L 01/31/19 06:31 Lipase 70 U/L (73-393) L 01/31/19 06:31 TSH 0.92 uIU/mL (0.358-3.74) 01/30/19 07:55 Prolactin 8.8 ng/mL (2.1-17.7) 01/29/19 09:30 PTH Intact 124 pg/mL (19-88) H 01/29/19 09:30 Urine Color Dark yellow (Yellow) 01/29/19 09:15 Urine Clarity Clear 01/29/19 09:15 Urine pH 7.0 (5-8) 01/29/19 09:15 Ur Specific [place] 1.025 (1.005-1.025) 01/29/19 09:15 Urine Protein 30 mg/dL (Negative) H 01/29/19 09:15 Urine Ketones Negative mg/dL (Negative) 01/29/19 09:15 Urine Blood Negative (Negative) 01/29/19 09:15 Urine Nitrite Negative (Negative) 01/29/19 09:15 Urine Bilirubin Negative (Negative) 01/29/19 09:15 Urine Urobilinogen 2.0 EU/dL (Up TO 0.2) H 01/29/19 09:15 Ur Leukocyte Esterase Negative (Negative) 01/29/19 09:15 Urine RBC Negative (0-2) 01/29/19 09:15 Urine WBC 0-2 HPF (0-5) 01/29/19 09:15 Ur Epithelial Cells Rare HPF (Negative) 01/29/19 09:15 Urine Crystals Negative HPF (Negative) 01/29/19 09:15 Urine Bacteria Rare HPF (Negative) 01/29/19 09:15 Urine Casts Negative LPF (Negative) 01/29/19 09:15 Urine Mucus Moderate (Negative) 01/29/19 09:15 Ur Culture Indicated? No 01/29/19 09:15 Urine Glucose 500 mg/dL (Negative) H 01/29/19 09:15
[2019-01-31] MEDS: Enoxaparin 40 MG/0.4 ML SYR SC (11:35)
[2019-01-31] MEDS: MAGNESIUM SULFATE 2 GM/50 ML BAG IVPB (11:35)
[2019-01-31] MEDS: cefTRIAXone 2 GM/50 ML BAG IVPB (12:46)
[2019-01-31] MEDS: Ketorolac 30 MG/ML VIAL IVP ×2 (12:46→19:05)
[2019-01-31] MEDS: Lactated Ringers 1,000 ML 150 ML IV (19:10)
[2019-02-01] VITALS (15 sets, daily range): BP systolic 126–154; BP diastolic 63–92; PULSE 68–87; RESP 13–21; TEMP 36.6–37.5; O2SAT 89–94
[2019-02-01] MEDS: Ketorolac 30 MG/ML VIAL IVP ×2 (00:34→05:58)
[2019-02-01] MEDS: metroNIDAZOLE 500 MG/100 ML BAG 100 MG IVPB ×2 (00:34→08:57)
[2019-02-01] MEDS: ACETAMINOPHEN 1,000 MG/100 ML BTL 400 MG IVPB (05:59)
[2019-02-01 07:20] LABS: Abs Immature Grans 0.03 k/cumm (0.0-0.09); Absolute Basophil Count 0.01 k/cumm (0.0-0.2); Absolute Eosinophil Count 0.17 k/cumm (0.0-0.7); Absolute Monocyte Count 1.54 k/cumm (0.11-0.7); Absolute Neutrophil Count 11.56 k/cumm (1.2-6.7); Basophils % 0.1; Eosinophils % 1.2; HCT 39.2 % (40.0-50.0); HGB 12.7 g/dL (13.5-17.5); Immature Grans % 0.2; Lymphocytes % 5.7; Mean Corp. HGB Concentration 32.4 g/dL (32.0-36.0); Mean Corpuscular Hemoglobin 30.5 pg (27.0-33.0); Mean Corpuscular Volume 94.2 fL (80-95); Mean Platelet Volume 11.3 fL (8.0-11.0); Monocytes % 10.9; Neutrophils % 81.9; Platelet Count 242 x1000/uL (130-400); RBC 4.16 m/cumm (4.50-6.00); White Blood Cell Count 14.11 k/cumm (4.4-10.8)
[2019-02-01 07:25] LABS: Anion Gap 7.1 mmol/L (3-11); BUN 17 mg/dL (7-18); CO2 28.9 mmol/L (21.0-32.0); CREATININE 0.91 mg/dL (0.70-1.30); Calcium 9.6 mg/dL (8.5-10.1); Chloride 103 mmol/L (98-107); Glucose 102 mg/dL (70-100); Potassium 3.5 mmol/L (3.5-5.1); Sodium 139 mmol/L (136-145)
--- NOTE | 2019-02-01 07:38 | CMPROGNOTE_ITS ---
- If Service Date Differs Date of service: 02/01/19 Time of Service: 07:37 Care Management Progress Note S/O:Martin was lying in bed preparing for transfer to [facility] for ERCP and possible stent placement during CM visit. He expressed anxiety about the procedure and concern about increased pain. 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 During visit, with ambulance waiting, RN administered Zofran and Dilaudid in preparation for the ride to [facility] to address both Martin's pain and reported car sickness. A:Martin is a 53 year old man who was admitted with cholecystitis and pancreatitis secondary to gallstones. P:Tone had an open cholecystectomy performed by Dr. Burch. It is anticipated that he will return home in a couple of days. He may need Home Health with group home for dressing changes. CM will continue to provide support to patient, family, care team and ongoing discharge planning.
--- NOTE | 2019-02-01 08:35 | PGE_ITS ---
Date of Service Date of service: 02/01/19 Time of Service: 08:31 Assessment and Plan (1) Bile leak, postoperative: Current visit: Yes Status: Acute POD #2 s/p open cholecystectomy. Today Mr. Peter is going to [facility] for stent placement secondary to his post- operative bile leak and he will tentatively return this afternoon. He will be pre-medicated with Zofran and Dilaudid prior to his transfer. INCISIONS- Prevena wound vac is covering the RUQ incision site. Gauze and mediport tape covering the umbilical incision site. DRAINS- KANCHAN drain with 30 ccs out overnight of bile colored fluid. NG tube in place with 550 cc out overnight. PAIN- FUNDRAISING CONSULTANT in place with Dilaudid; with good effect in controlling his pain levels DIET- NPO; ice chips and sips of water only. Hard candy okay. RESP- Crackles on auscultation. Encouraged sitting up in the chair and using the incentive spirometer. (2) Gangrenous cholecystitis: Current visit: Yes Status: Acute Subjective Interval history since last seen: Feeling okay, I am controlling the pain pretty well with the button. Abdominal pain 7/10PL. Reports he was able to get some sleep last night. He reports that with the NG tube he feels he has to work harder to breath and this improves when the NG tube is clamped. Exam Const General: cooperative and comfortable Orientation: alert and oriented x3 Resp Effort & Inspection: normal respiratory effort, no audible wheezes and no cough Auscultation: crackles bilaterally Cardio Rate: regular rate Rhythm: regular rhythm Heart Sounds: S1 normal, S2 normal and no murmurs GI Inspection: normal to inspection, non-distended and incision (with Prevan in place) Palpation: soft, no guarding and tender in the RLQ, in the RUQ and periumbilically Auscultation: normal bowel sounds Objective Objective Clinical Data: Abnormal lab results 01/31/19 02/01/19 02/01/19 Range/Units 06:31 06:15 06:15 WBC 14.11 H (4.4-10.8) k/cumm RBC 4.16 L (4.50-6.00) m/cumm Hgb 12.7 L (13.5-17.5) g/dL Hct 39.2 L (40.0-50.0) % MPV 11.3 H (8.0-11.0) fL Absolute Neutrophils 11.56 H (1.2-6.7) k/cumm Absolute Lymphocytes 0.80 L (1.2-3.4) k/cumm Absolute Monocytes 1.54 H (0.11-0.7) k/cumm Glucose 128 H 102 H (70-100) mg/dL Magnesium 1.6 L (1.8-2.4) mg/dL Total Protein 6.3 L (6.4-8.2) g/dL Albumin 2.4 L (3.4-5.0) g/dL Amylase 22 L (25-115) U/L Lipase 70 L (73-393) U/L Vital Signs Temperature 36.6 C 02/01/19 08:10 Temperature Source Temporal Artery Scan 02/01/19 08:10 Pulse 82 02/01/19 08:00 Pulse Rhythm Regular 01/30/19 09:00 Pulse 87 02/01/19 08:01 Respiratory Rate 19 02/01/19 08:01 Respiratory Effort 02/01/19 08:10 Respiratory Depth Shallow 02/01/19 08:10 Respiratory Pattern Normal 02/01/19 08:10 Blood Pressure 153/92 H 02/01/19 08:00 Blood Pressure Mean 105 02/01/19 08:00 Blood Pressure Position Supine 02/01/19 08:10 Pulse Oximetry 93 L 02/01/19 08:01 Respiratory End-tidal CO2 39 01/30/19 15:03 Oxygen Delivery Method Nasal Cannula 02/01/19 08:10 Oxygen Flow Rate 2 02/01/19 08:10 Pain Level 7 02/01/19 08:10 Comment pt woke at midnight with 01/29/19 08:52 Intake & Output 01/31/19 02/01/19 02/01/19 18:59 06:59 18:59 Intake Total 1950 / 3670 1720 / 3670 Output Total 825 / 2105 1280 / 2105 Balance 1125 / 1565 440 / 1565 Weight 110.1 kg Intake: IV 1880 / 3600 1720 / 3600 Injectate 70 / 70 Right Abdomen 70 / 70 Output: Gastric Drainage 300 / 1000 700 / 1000 Right Nare 300 / 1000 700 / 1000 Drainage 50 / 80 30 / 80 Right Abdomen 50 / 80 30 / 80 Urine 475 / 1025 550 / 1025 Other: Urine Color Dark Stephanie Dark Stephanie Bright Red Urine Appearance Clear Clear Comment Indwelling westbrook catheter patent- urine dark stephanie Westbrook in place draining dark urine. Westbrook in place draining dark urine. Gastric Occult Blood Right Nare Positive Negative Laboratory Results WBC 14.11 k/cumm (4.4-10.8) H 02/01/19 06:15 RBC 4.16 m/cumm (4.50-6.00) L 02/01/19 06:15 Hgb 12.7 g/dL (13.5-17.5) L 02/01/19 06:15 Hct 39.2 % (40.0-50.0) L 02/01/19 06:15 MCV 94.2 fL (80-95) 02/01/19 06:15 MCH 30.5 pg (27.0-33.0) 02/01/19 06:15 MCHC 32.4 g/dL (32.0-36.0) 02/01/19 06:15 RDW 13.0 % (11.8-14.1) 02/01/19 06:15 Plt Count 242 x1000/uL (130-400) 02/01/19 06:15 MPV 11.3 fL (8.0-11.0) H 02/01/19 06:15 Immature Gran % 0.2 02/01/19 06:15 Neutrophils % 81.9 02/01/19 06:15 Lymphocytes % 5.7 02/01/19 06:15 Monocytes % 10.9 02/01/19 06:15 Eosinophils % 1.2 02/01/19 06:15 Basophils % 0.1 02/01/19 06:15 Metamyelocytes % 0.0 % 01/31/19 06:31 Myelocytes % 0.0 % 01/31/19 06:31 Promyelocytes % 0 % 01/31/19 06:31 Absolute Neutrophils 11.56 k/cumm (1.2-6.7) H 02/01/19 06:15 Absolute Lymphocytes 0.80 k/cumm (1.2-3.4) L 02/01/19 06:15 Absolute Monocytes 1.54 k/cumm (0.11-0.7) H 02/01/19 06:15 Absolute Eosinophils 0.17 k/cumm (0.0-0.7) 02/01/19 06:15 Absolute Basophils 0.01 k/cumm (0.0-0.2) 02/01/19 06:15 Differential Comment Manual differential 01/31/19 06:31 Other Cell Type 0 01/31/19 06:31 RBC Morphology Normal 01/31/19 06:31 Sodium 139 mmol/L (136-145) 02/01/19 06:15 Potassium 3.5 mmol/L (3.5-5.1) 02/01/19 06:15 Chloride 103 mmol/L (98-107) 02/01/19 06:15 Carbon Dioxide 28.9 mmol/L (21.0-32.0) 02/01/19 06:15 Anion Gap 7.1 mmol/L (3-11) 02/01/19 06:15 BUN 17 mg/dL (7-18) 02/01/19 06:15 Creatinine 0.91 mg/dL (0.70-1.30) 02/01/19 06:15 Estimated GFR/1.73 m2 >= 60.00 (mL/min/1.73m2) 02/01/19 06:15 Glucose 102 mg/dL (70-100) H 02/01/19 06:15 Hemoglobin A1c 6.0 % (4.5-6.2) 01/31/19 06:31 Calcium 9.6 mg/dL (8.5-10.1) 02/01/19 06:15 Magnesium 2.0 mg/dL (1.8-2.4) 02/01/19 06:15 Total Bilirubin 0.9 mg/dL (0.2-1.0) 01/31/19 06:31 AST 37 U/L (15-37) 01/31/19 06:31 ALT 69 U/L (12-78) 01/31/19 06:31 Alkaline Phosphatase 104 U/L (46-116) 01/31/19 06:31 Troponin I < 0.02 ng/mL (0.00-0.06) 01/31/19 06:31 Total Protein 6.3 g/dL (6.4-8.2) L 01/31/19 06:31 Albumin 2.4 g/dL (3.4-5.0) L 01/31/19 06:31 Triglycerides 74 mg/dL (30-150) 01/30/19 07:55 Total Cholesterol 153 mg/dL (50-200) 01/30/19 07:55 LDL Cholesterol Direct 97 mg/dL (<100) 01/30/19 07:55 HDL Cholesterol 41 mg/dL (40-60) 01/30/19 07:55 Amylase 22 U/L (25-115) L 01/31/19 06:31 Lipase 70 U/L (73-393) L 01/31/19 06:31 TSH 0.92 uIU/mL (0.358-3.74) 01/30/19 07:55 Prolactin 8.8 ng/mL (2.1-17.7) 01/29/19 09:30 PTH Intact 124 pg/mL (19-88) H 01/29/19 09:30 Urine Color Dark yellow (Yellow) 01/29/19 09:15 Urine Clarity Clear 01/29/19 09:15 Urine pH 7.0 (5-8) 01/29/19 09:15 Ur Specific [place] 1.025 (1.005-1.025) 01/29/19 09:15 Urine Protein 30 mg/dL (Negative) H 01/29/19 09:15 Urine Ketones Negative mg/dL (Negative) 01/29/19 09:15 Urine Blood Negative (Negative) 01/29/19 09:15 Urine Nitrite Negative (Negative) 01/29/19 09:15 Urine Bilirubin Negative (Negative) 01/29/19 09:15 Urine Urobilinogen 2.0 EU/dL (Up TO 0.2) H 01/29/19 09:15 Ur Leukocyte Esterase Negative (Negative) 01/29/19 09:15 Urine RBC Negative (0-2) 01/29/19 09:15 Urine WBC 0-2 HPF (0-5) 01/29/19 09:15 Ur Epithelial Cells Rare HPF (Negative) 01/29/19 09:15 Urine Crystals Negative HPF (Negative) 01/29/19 09:15 Urine Bacteria Rare HPF (Negative) 01/29/19 09:15 Urine Casts Negative LPF (Negative) 01/29/19 09:15 Urine Mucus Moderate (Negative) 01/29/19 09:15 Ur Culture Indicated? No 01/29/19 09:15 Urine Glucose 500 mg/dL (Negative) H 01/29/19 09:15
[2019-02-01] MEDS: Normal Saline Flush 10 ML SYR IVP ×2 (08:58→09:54)
[2019-02-01] MEDS: Pantoprazole 40 MG VIAL IVP (08:58)
[2019-02-01] MEDS: Lactated Ringers 1,000 ML 150 ML IV (09:00)
[2019-02-01] MEDS: HYDROmorphone 2 MG/ML VIAL 1 MG IVP (09:54)
[2019-02-01] MEDS: Ondansetron 4 MG/2 ML VIAL IVP (09:54)
--- NOTE | 2019-02-09 18:53 | W.PM.DS.N ---
Date of service: 01/31/19 Time of Service: 09:00 DS: Diagnosis Discharge Diagnosis (1) Bile leak, postoperative: Status: Acute (2) Gangrenous cholecystitis: Status: Acute (3) Pulmonary nodule seen on imaging study: Status: Acute (4) MEN I (multiple endocrine neoplasia): Status: Acute (5) Hyperplasia of parathyroid: Status: Acute Discharge Plan Disposition Patient Disposition: [facility] Condition: Stable Discharge Details Chief Complaint: Abd Prob Reason For Visit: ACUTE CHOL. GALLSTONE PANC Admit Date/Time: 01/29/19 12:26 Admit Provider: Tracie Burch Attending Provider: Tracie Burch Primary Care Provider: Vero Flores ED Provider: Jordan Kwok Hospital Course Hospital Course: pt was admitted on 01/29 w/ acute cholecysitis and gallstone pancreatitis. he was admitted for hydration/pain management /abx therapy. The CBD was nl and enzymes normalized after 24 hrs. On 01/30 pt was still having high amounts of pain and was bordering on spetic. He was taken for emergent cholecystectomy. At the time of surgery- he was found to have gangrenous choecystits. He had to undergo open cholecystectomy -see Op Report. He has developed a bile leak and will go to [facility] for ERCP and stent placement. He can f/u w/ our clinic or [facility] for postOp custodial Meds and New Rx's Prescriptions: No Action No Known Home Meds RF: 0 Discharge Instructions Activity:: transfering for ERCP Diet:: npo Discharge Data Discharge Date/Time-TO BE ENTERED AT DEPARTURE: 02/01/19 10:05 Exam Const General: cooperative, healthy appearing, comfortable, no acute distress, well developed and well groomed Nutritional Appearance: average body habitus and well nourished Orientation: alert, awake and oriented x3 HENMT Head: normal to inspection, normocephalic and atraumatic Ears: hearing grossly normal bilaterally and external ears normal General nose exam: external nose normal Face and sinus: normal facial exam and sinuses nontender Mouth: oral mucosae normal, lip normal, tongue normal and moist mucous membranes Teeth and gingiva: dentition normal Eyes General: appearance normal, both eyes and all related structures Conjunctivae: conjunctivae normal Sclera: sclerae normal Pupils: PERRL Neck Neck: normal visual inspection and full ROM Chest Chest: normal inspection of the chest Resp Effort & Inspection: normal respiratory effort, able to speak in complete sentences, no cough, no nasal flaring, not tachypneic and no use of accessory muscles Auscultation: clear to auscultation bilaterally, no rales, no rhonchi and no wheezes Cardio Jugular venous pressure: no JVD Rate: regular rate Rhythm: regular rhythm Other: echo results pd GI Inspection: normal to inspection, no edema and non-distended Palpation: soft, no masses, nontender and No ascites Auscultation: normal bowel sounds Other: incision is dressing w/ VAC drain has bile+ . min blood Skin General skin exam: no rashes or lesions noted Trauma: no lacerations or abrasions Neuro General: alert, oriented x3, oriented, gait normal, moves all extremities, no focal motor deficits and CN's II-XI intact bilaterally Cognition: normal cognition Speech: speech normal Gait: normal gait Motor: muscle tone normal throughout Extrem General: normal to inspection, full ROM and no clubbing, cyanosis or edema Psych Appearance: grossly normal and well kempt Mental Status: mental status grossly normal Speech and Movement: speech and movement normal Affect: normal affect DS: Data Vitals/I&O Vitals and I&O: Vital Signs Temperature 36.6 C 02/01/19 08:10 Temperature Source Temporal Artery Scan 02/01/19 08:10 Pulse 84 02/01/19 09:00 Pulse Rhythm Regular 01/30/19 09:00 Pulse 84 02/01/19 09:01 Respiratory Rate 15 02/01/19 09:01 Respiratory Effort 02/01/19 08:10 Respiratory Depth Shallow 02/01/19 08:10 Respiratory Pattern Normal 02/01/19 08:10 Blood Pressure 154/68 H 02/01/19 09:00 Blood Pressure Mean 89 02/01/19 09:00 Blood Pressure Position Supine 02/01/19 08:10 Pulse Oximetry 92 L 02/01/19 09:01 Respiratory End-tidal CO2 39 01/30/19 15:03 Oxygen Delivery Method Nasal Cannula 02/01/19 08:10 Oxygen Flow Rate 2 02/01/19 08:10 Pain Level 7 02/01/19 10:05 Comment pt woke at midnight with 01/29/19 08:52 [facility] Medical History Bile leak, postoperative (Acute) Hyperplasia of parathyroid (Acute) Gangrenous cholecystitis (Acute) Pulmonary nodule seen on imaging study (Acute) Hyperparathyroidism type 1 (Acute) Acute cholecystitis due to biliary calculus (Acute) Acute gallstone pancreatitis (Acute) MEN I (multiple endocrine neoplasia) (Acute) Kidney stones (Chronic) Internal derangement of left knee (Acute) Kidney stone (Chronic) Left patella fracture (Chronic) Social History Smoking/Tobacco Use Status: Never Drug use: Current Sobriety Substance use type: marijuana Do you feel safe at home: Yes Do you feel safe in your relationship?: Yes
--- NOTE | 2019-02-09 18:56 | DSE_ITS ---
Date of service: 01/31/19 Time of Service: 09:00 DS: Diagnosis Discharge Diagnosis (1) Bile leak, postoperative: Status: Acute (2) Gangrenous cholecystitis: Status: Acute (3) Pulmonary nodule seen on imaging study: Status: Acute (4) MEN I (multiple endocrine neoplasia): Status: Acute (5) Hyperplasia of parathyroid: Status: Acute Discharge Plan Disposition Patient Disposition: [facility] Condition: Stable Discharge Details Chief Complaint: Abd Prob Reason For Visit: ACUTE CHOL. GALLSTONE PANC Admit Date/Time: 01/29/19 12:26 Admit Provider: Tracie Burch Attending Provider: Tracie Burch Primary Care Provider: Vero Flores ED Provider: Jordan Kwok Hospital Course Hospital Course: pt was admitted on 01/29 w/ acute cholecysitis and gallstone pancreatitis. he was admitted for hydration/pain management /abx therapy. The CBD was nl and enzymes normalized after 24 hrs. On 01/30 pt was still having high amounts of pain and was bordering on spetic. He was taken for emergent cholecystectomy. At the time of surgery- he was found to have gangrenous choecystits. He had to undergo open cholecystectomy -see Op Report. He has developed a bile leak and [place] [facility] [place] He can f/u w/ our clinic or [facility] [place] Meds and New Rx's Prescriptions: No Action No Known Home Meds RF: 0 Discharge Instructions Activity:: transfering for ERCP Diet:: npo Discharge Data Discharge Date/Time-TO BE ENTERED AT DEPARTURE: 02/01/19 10:05 Exam Const General: cooperative, healthy appearing, comfortable, no acute distress, well developed and well groomed Nutritional Appearance: average body habitus and well nourished Orientation: alert, awake and oriented x3 HENMT Head: normal to inspection, normocephalic and atraumatic Ears: hearing grossly normal bilaterally and external ears normal General nose exam: external nose normal Face and sinus: normal facial exam and sinuses nontender Mouth: oral mucosae normal, lip normal, tongue normal and moist mucous membranes Teeth and gingiva: dentition normal Eyes General: appearance normal, both eyes and all related structures Conjunctivae: conjunctivae normal Sclera: sclerae normal Pupils: PERRL Neck Neck: normal visual inspection and full ROM Chest Chest: normal inspection of the chest Resp Effort & Inspection: normal respiratory effort, able to speak in complete sentences, no cough, no nasal flaring, not tachypneic and no use of accessory muscles Auscultation: clear to auscultation bilaterally, no rales, no rhonchi and no wheezes Cardio Jugular venous pressure: no JVD Rate: regular rate Rhythm: regular rhythm Other: echo results pd GI Inspection: normal to inspection, no edema and non-distended Palpation: soft, no masses, nontender and No ascites Auscultation: normal bowel sounds Other: incision is dressing w/ VAC drain has bile+ . min blood Skin General skin exam: no rashes or lesions noted Trauma: no lacerations or abrasions Neuro General: alert, oriented x3, oriented, gait normal, moves all extremities, no focal motor deficits and CN's II-XI intact bilaterally Cognition: normal cognition Speech: speech normal Gait: normal gait Motor: muscle tone normal throughout Extrem General: normal to inspection, full ROM and no clubbing, cyanosis or edema Psych Appearance: grossly normal and well kempt Mental Status: mental status grossly normal Speech and Movement: speech and movement normal Affect: normal affect DS: Data Vitals/I&O Vitals and I&O: Vital Signs Temperature 36.6 C 02/01/19 08:10 Temperature Source Temporal Artery Scan 02/01/19 08:10 Pulse 84 02/01/19 09:00 Pulse Rhythm Regular 01/30/19 09:00 Pulse 84 02/01/19 09:01 Respiratory Rate 15 02/01/19 09:01 Respiratory Effort 02/01/19 08:10 Respiratory Depth Shallow 02/01/19 08:10 Respiratory Pattern Normal 02/01/19 08:10 Blood Pressure 154/68 H 02/01/19 09:00 Blood Pressure Mean 89 02/01/19 09:00 Blood Pressure Position Supine 02/01/19 08:10 Pulse Oximetry 92 L 02/01/19 09:01 Respiratory End-tidal CO2 39 01/30/19 15:03 Oxygen Delivery Method Nasal Cannula 02/01/19 08:10 Oxygen Flow Rate 2 02/01/19 08:10 Pain Level 7 02/01/19 10:05 Comment pt woke at midnight with 01/29/19 08:52 [facility] Medical History Bile leak, postoperative (Acute) Hyperplasia of parathyroid (Acute) Gangrenous cholecystitis (Acute) Pulmonary nodule seen on imaging study (Acute) Hyperparathyroidism type 1 (Acute) Acute cholecystitis due to biliary calculus (Acute) Acute gallstone pancreatitis (Acute) MEN I (multiple endocrine neoplasia) (Acute) Kidney stones (Chronic) Internal derangement of left knee (Acute) Kidney stone (Chronic) Left patella fracture (Chronic) Social History Smoking/Tobacco Use Status: Never Drug use: Current Sobriety Substance use type: marijuana Do you feel safe at home: Yes Do you feel safe in your relationship?: Yes
== END 2019-02-01 10:05 | disposition short-term general hospital (02) | DRG 408 ==
LOC: ER 12:36 → MS 14:16 → ICU 01-30 16:10
PROVIDERS: Admitting Provider Surgery; Emergency Provider Student in an Organized Health Care Education/Training Program; PCP Family Medicine; Visit Provider Surgery
PROC: 0FT44ZZ Resection of Gallbladder, Percutaneous Endoscopic Approach (ICD-10-PCS; CPT 47562; principal; 2019-01-30 10:00)
DX: K80.12 Calculus of gallbladder with acute and chronic cholecystitis without obstruction (principal); K85.11 Biliary acute pancreatitis with uninfected necrosis; K91.89 Other postprocedural complications and disorders of digestive system; K82.A1 Gangrene of gallbladder in cholecystitis; E31.21 Multiple endocrine neoplasia [MEN] type I; E21.2 Other hyperparathyroidism; R91.1 Solitary pulmonary nodule; Z87.442 Personal history of urinary calculi; R07.9 Chest pain, unspecified; R06.09 Other forms of dyspnea; I34.0 Nonrheumatic mitral (valve) insufficiency; Y83.8 Other surgical procedures as the cause of abnormal reaction of the patient, or of later complication, without mention of misadventure at the time of the procedure; G89.18 Other acute postprocedural pain
CPT/HCPCS: 47600; 64450; 36415; 71275; 74175; 76942; 80048; 80053; 80061; 83690; 83721; 87077; 96374; 96375; 99232; 99239; 99253; 99284; J1650; NC; 76705; 81003; 81015; 82150; 83036; 83735; 83970; 84146; 84443; 84484; 85025; 87070; 87075; 87205; 88304; 93005; 93010; 93306; 99222; 99285; J0131; J1885; J2250; J2370; J2405; J3010; J3490; J7613